=== PATIENT | female | born 1950 | race Caucasian/White ===

== ENCOUNTER → 2017-07-26 01:00 | Outpatient (REF) | payer MEDICARE, SELFPAY | LOC: OLS.ACH 01:00 | PROVIDERS: Family Provider Family Medicine; PCP Family Medicine; Visit Provider Family Medicine | DX: N39.0 Urinary tract infection, site not specified (principal) | CPT/HCPCS: 87077; 87086; 87088; 87186 ==

== ENCOUNTER → 2017-08-20 05:00 | Outpatient (REF) | payer MEDICARE, SELFPAY ==
[2017-08-20 08:30] LABS: Color, Urine Yellow (Yellow); Glucose, Dipstick Normal (Normal); Ketone-Dipstick 5 mg/dl (Negative); Leukocyte Esterase-Dipstick 25 /ul (Negative); Nitrite-Dipstick Negative (Negative); Occult Blood-Urine Negative /ul (Negative); Protein-Dipstick Negative (Negative); Urine Bilirubin Dipstick Negative (Negative); Urine Clarity Clear (Clear); Urine Urobilinogen Normal (Normal)
[2017-08-20 08:57] LABS: Creatinine, Serum 0.71 mg/dL (0.55-1.02); EST Glomerular Filtration Rate 88 mL/min (>60); Est Glom Filt Rate - Afr Amer 107 mL/min (>60)
== END ==
LOC: OLS.ACH 05:00
PROVIDERS: Visit Provider Family Medicine
DX: G20 Parkinson's disease (principal); N39.0 Urinary tract infection, site not specified
CPT/HCPCS: 36415; 81002; 82565

== ENCOUNTER → 2017-09-18 04:53 | Outpatient (REF) | payer MEDICARE, SELFPAY ==
[2017-09-18 08:41] LABS: Color, Urine Yellow (Yellow); Glucose, Dipstick Normal (Normal); Ketone-Dipstick Negative (Negative); Specific Gravity, Urine 1.025 (1.002-1.030); Urine Bilirubin Dipstick Negative (Negative); Urine Clarity Sl Cloudy (Clear)
[2017-09-18 08:42] LABS: Leukocyte Esterase-Dipstick Negative /ul (Negative); Nitrite-Dipstick Negative (Negative); Occult Blood-Urine Negative /ul (Negative); Protein-Dipstick Negative (Negative); Urine Urobilinogen Normal (Normal)
== END ==
LOC: OLS.ACH 04:53
PROVIDERS: Visit Provider Family Medicine
DX: N39.0 Urinary tract infection, site not specified (principal)
CPT/HCPCS: 81002

== ENCOUNTER → 2017-10-15 05:00 | Outpatient (REF) | payer MEDICARE, SELFPAY ==
[2017-10-15 08:40] LABS: Absolute Lymphocyte Count 1.63 X10^3/ul (0.83-4.51); Absolute Neutrophil Count 3.8 X10^3/uL (2.0-7.7); Basophil# 0.03 X10^3/uL; Basophil% 0.5 % (0-1); Eosinophil# 0.22 X10^3/uL; Eosinophils% 3.5 % (0-5); Hematocrit 42.1 % (37-47); Hemoglobin 13.3 g/dl (12.0-15.0); Lymphocyte # 1.63 X10^3/ul (4.0); Lymphocyte % 26.2 % (19-41); Mean Corp Hgb Conc 31.6 g/gl (32-36); Mean Corpuscular Hgb 29.4 pg (27.0-32.0); Mean Corpuscular Volume 92.9 fL (81-99); Mean Platelet Vol. 10.7 fl (6.2-12.0); Monocyte# 0.54 X10^3/uL; Monocyte% 8.7 % (0-10); Neutrophil % 60.9 % (47-70); Platelet Count 200 K/mm3 (150-450); RBC Distribution Width CV 15.2 % (11.6-14.6); RBC Distribution Width SD 51.6 fl (35.1-43.9); Red Blood Count 4.53 M/mm3 (4.2-5.4); White Blood Count 6.2 K/mm3 (4.4-11.0)
[2017-10-15 08:51] LABS: POSITIVE COUNT NO; POSITIVE DIFFERENTIAL NO; POSITIVE MORPHOLOGY NO
[2017-10-15 09:07] LABS: Anion Gap 9 (5-15); BUN 18 mg/dL (7-18); BUN/Creat Ratio 24.4 RATIO (10-20); Calcium,Total 8.8 mg/dL (8.5-10.1); Chloride 101 mmol/L (98-107); Creatinine, Serum 0.74 mg/dL (0.55-1.02); EST Glomerular Filtration Rate 84 mL/min (>60); Est Glom Filt Rate - Afr Amer 102 mL/min (>60); Glucose 92 mg/dL (70-110); Potassium 4.2 mmol/L (3.5-5.1); Sodium Level 137 mmol/L (136-145)
== END ==
LOC: OLS.ACH 05:00
PROVIDERS: Visit Provider Family Medicine
DX: E03.9 Hypothyroidism, unspecified (principal); I48.0 Paroxysmal atrial fibrillation; N20.0 Calculus of kidney
CPT/HCPCS: 36415; 80048; 84443; 85025

== ENCOUNTER → 2017-10-17 05:00 | Outpatient (REF) | payer MEDICARE, SELFPAY ==
[2017-10-17 07:27] LABS: Color, Urine Yellow (Yellow); Glucose, Dipstick Normal (Normal); Ketone-Dipstick Negative (Negative); Leukocyte Esterase-Dipstick 500 /ul (Negative); Nitrite-Dipstick Positive (Negative); Occult Blood-Urine 10 /ul (Negative); Protein-Dipstick Negative (Negative); Urine Bilirubin Dipstick Negative (Negative); Urine Clarity Sl. Cloudy (Clear); Urine Urobilinogen Normal (Normal)
== END ==
LOC: OLS.ACH 05:00
PROVIDERS: Visit Provider Family Medicine
DX: E03.9 Hypothyroidism, unspecified (principal); I48.0 Paroxysmal atrial fibrillation; N20.0 Calculus of kidney; N39.0 Urinary tract infection, site not specified
CPT/HCPCS: 81002; 87086; 87088; 87186

== ENCOUNTER → 2017-12-17 05:00 | Outpatient (REF) | payer MEDICARE, SELFPAY ==
[2017-12-17 08:04] LABS: Color, Urine Yellow (Yellow); Glucose, Dipstick Normal (Normal); Ketone-Dipstick Negative (Negative); Leukocyte Esterase-Dipstick Negative /ul (Negative); Nitrite-Dipstick Negative (Negative); Occult Blood-Urine Negative /ul (Negative); Protein-Dipstick Negative (Negative); Specific Gravity, Urine 1.015 (1.002-1.030); Urine Bilirubin Dipstick Negative (Negative); Urine Clarity Sl. Cloudy (Clear); Urine Urobilinogen Normal (Normal)
== END ==
LOC: OLS.ACH 05:00
PROVIDERS: Visit Provider Family Medicine
DX: N39.0 Urinary tract infection, site not specified (principal)
CPT/HCPCS: 81002

== ENCOUNTER → 2018-01-14 05:00 | Outpatient (REF) | payer MEDICARE, SELFPAY ==
[2018-01-14 08:16] LABS: Absolute Lymphocyte Count 1.72 X10^3/ul (0.83-4.51); Absolute Neutrophil Count 3.4 X10^3/uL (2.0-7.7); Basophil# 0.03 X10^3/uL; Basophil% 0.5 % (0-1); Eosinophil# 0.29 X10^3/uL; Eosinophils% 4.8 % (0-5); Hematocrit 40.4 % (37-47); Hemoglobin 13.1 g/dl (12.0-15.0); Lymphocyte # 1.72 X10^3/ul (4.0); Lymphocyte % 28.4 % (19-41); Mean Corp Hgb Conc 32.4 g/gl (32-36); Mean Corpuscular Hgb 30.3 pg (27.0-32.0); Mean Corpuscular Volume 93.5 fL (81-99); Mean Platelet Vol. 10.4 fl (6.2-12.0); Monocyte# 0.63 X10^3/uL; Monocyte% 10.4 % (0-10); Neutrophil # 3.36 X10^3/uL (2.7-7.7); Neutrophil % 55.6 % (47-70); Platelet Count 200 K/mm3 (150-450); RBC Distribution Width CV 13.9 % (11.6-14.6); RBC Distribution Width SD 45.9 fl (35.1-43.9); Red Blood Count 4.32 M/mm3 (4.2-5.4); White Blood Count 6.1 K/mm3 (4.4-11.0)
[2018-01-14 08:22] LABS: Color, Urine Yellow (Yellow); Glucose, Dipstick Normal (Normal); Ketone-Dipstick Negative (Negative); Leukocyte Esterase-Dipstick Negative /ul (Negative); Nitrite-Dipstick Negative (Negative); Occult Blood-Urine Negative /ul (Negative); Protein-Dipstick Negative (Negative); Specific Gravity, Urine 1.015 (1.002-1.030); Urine Bilirubin Dipstick Negative (Negative); Urine Clarity Sl. Cloudy (Clear); Urine Urobilinogen Normal (Normal)
[2018-01-14 08:24] LABS: POSITIVE COUNT NO; POSITIVE DIFFERENTIAL NO; POSITIVE MORPHOLOGY NO
[2018-01-14 08:54] LABS: Anion Gap 8 (5-15); BUN 18 mg/dL (7-18); BUN/Creat Ratio 27.6 RATIO (10-20); Calcium,Total 8.3 mg/dL (8.5-10.1); Chloride 107 mmol/L (98-107); Creatinine, Serum 0.65 mg/dL (0.55-1.02); EST Glomerular Filtration Rate 97 mL/min (>60); Est Glom Filt Rate - Afr Amer 117 mL/min (>60); Glucose 88 mg/dL (74-106); Potassium 4.3 mmol/L (3.5-5.1); Sodium Level 141 mmol/L (136-145); Thyroid Stim Hormone (TSH) 1.89 uIU/mL (0.358-3.74)
== END ==
LOC: OLS.ACH 05:00
PROVIDERS: Visit Provider Family Medicine
DX: E03.9 Hypothyroidism, unspecified (principal); I48.0 Paroxysmal atrial fibrillation; N20.0 Calculus of kidney; N39.0 Urinary tract infection, site not specified
CPT/HCPCS: 36415; 80048; 81002; 84443; 85025

== ENCOUNTER → 2018-03-18 07:00 | Outpatient (REF) | payer MEDICARE, SELFPAY ==
[2018-03-18 08:19] LABS: Color, Urine Yellow (Yellow); Glucose, Dipstick Normal (Normal); Ketone-Dipstick 5 mg/dl (Negative); Leukocyte Esterase-Dipstick 25 /ul (Negative); Nitrite-Dipstick Negative (Negative); Occult Blood-Urine Negative /ul (Negative); Protein-Dipstick 30 mg/dl (Negative); Specific Gravity, Urine 1.025 (1.002-1.030); Urine Bilirubin Dipstick Negative (Negative); Urine Clarity Sl. Cloudy (Clear); Urine Urobilinogen Normal (Normal)
== END ==
LOC: OLS.ACH 07:00
PROVIDERS: Visit Provider Family Medicine
DX: N39.0 Urinary tract infection, site not specified (principal)
CPT/HCPCS: 81002

== ENCOUNTER → 2018-04-15 05:00 | Outpatient (REF) | payer MEDICARE, SELFPAY ==
[2018-04-15 09:05] LABS: Absolute Lymphocyte Count 1.28 X10^3/ul (0.83-4.51); Absolute Neutrophil Count 2.9 X10^3/uL (2.0-7.7); Basophil# 0.03 X10^3/uL; Basophil% 0.6 % (0-1); Eosinophil# 0.26 X10^3/uL; Eosinophils% 5.3 % (0-5); Hematocrit 42.3 % (37-47); Hemoglobin 13.6 g/dl (12.0-15.0); Lymphocyte # 1.28 X10^3/ul (4.0); Lymphocyte % 26.1 % (19-41); Mean Corp Hgb Conc 32.2 g/gl (32-36); Mean Corpuscular Hgb 30.2 pg (27.0-32.0); Mean Corpuscular Volume 93.8 fL (81-99); Mean Platelet Vol. 10.6 fl (6.2-12.0); Monocyte# 0.44 X10^3/uL; Neutrophil # 2.89 X10^3/uL (2.7-7.7); Platelet Count 188 K/mm3 (150-450); RBC Distribution Width CV 14.2 % (11.6-14.6); RBC Distribution Width SD 48.5 fl (35.1-43.9); Red Blood Count 4.51 M/mm3 (4.2-5.4); White Blood Count 4.9 K/mm3 (4.4-11.0)
[2018-04-15 09:06] LABS: Color, Urine Yellow (Yellow); Glucose, Dipstick Normal (Normal); Ketone-Dipstick 15 mg/dl (Negative); Leukocyte Esterase-Dipstick 25 /ul (Negative); Nitrite-Dipstick Negative (Negative); Occult Blood-Urine 10 /ul (Negative); Protein-Dipstick 100 mg/dl (Negative); Urine Bilirubin Dipstick Negative (Negative); Urine Clarity Cloudy (Clear); Urine Urobilinogen 1 mg/dl (Normal)
[2018-04-15 09:12] LABS: POSITIVE COUNT NO; POSITIVE DIFFERENTIAL NO; POSITIVE MORPHOLOGY NO
[2018-04-15 09:55] LABS: Anion Gap 10 (5-15); BUN 19 mg/dL (7-18); BUN/Creat Ratio 25.1 RATIO (10-20); Calcium,Total 8.4 mg/dL (8.5-10.1); Chloride 107 mmol/L (98-107); Creatinine, Serum 0.76 mg/dL (0.55-1.02); EST Glomerular Filtration Rate 81 mL/min (>60); Est Glom Filt Rate - Afr Amer 99 mL/min (>60); Glucose 77 mg/dL (74-106); Potassium 4.3 mmol/L (3.5-5.1); Sodium Level 143 mmol/L (136-145); Thyroid Stim Hormone (TSH) 1.69 uIU/mL (0.358-3.74)
== END ==
LOC: OLS.ACH 05:00
PROVIDERS: Visit Provider Family Medicine
DX: I48.0 Paroxysmal atrial fibrillation (principal); E03.9 Hypothyroidism, unspecified; N20.0 Calculus of kidney; N39.0 Urinary tract infection, site not specified
CPT/HCPCS: 36415; 80048; 81002; 84443; 85025

== ENCOUNTER → 2018-05-20 01:00 | Outpatient (REF) | payer MEDICARE, SELFPAY ==
[2018-05-20 09:50] LABS: Color, Urine Yellow (Yellow); Glucose, Dipstick Normal (Normal); Ketone-Dipstick Negative (Negative); Leukocyte Esterase-Dipstick 25 /ul (Negative); Nitrite-Dipstick Negative (Negative); Occult Blood-Urine Negative /ul (Negative); Protein-Dipstick Negative (Negative); Urine Bilirubin Dipstick Negative (Negative); Urine Clarity Cloudy (Clear); Urine Urobilinogen Normal (Normal)
== END ==
LOC: OLS.ACH 01:00
PROVIDERS: Visit Provider Family Medicine
DX: N39.0 Urinary tract infection, site not specified (principal)
CPT/HCPCS: 81002

== ENCOUNTER → 2018-06-17 22:50 | Outpatient (REF) | payer MEDICARE, SELFPAY ==
[2018-06-18 09:21] LABS: Color, Urine Yellow (Yellow); Glucose, Dipstick Normal (Normal); Ketone-Dipstick 5 mg/dl (Negative); Leukocyte Esterase-Dipstick 100 /ul (Negative); Nitrite-Dipstick Negative (Negative); Occult Blood-Urine Negative /ul (Negative); Protein-Dipstick 15 mg/dl (Negative); Specific Gravity, Urine 1.025 (1.002-1.030); Urine Bilirubin Dipstick Negative (Negative); Urine Clarity Sl. Cloudy (Clear); Urine Urobilinogen Normal (Normal)
== END ==
LOC: OLS.ACH 22:50
PROVIDERS: Visit Provider Family Medicine
DX: N39.0 Urinary tract infection, site not specified (principal)
CPT/HCPCS: 81002

== ENCOUNTER → 2018-07-15 04:00 | Outpatient (REF) | payer MEDICARE, SELFPAY ==
[2018-07-15 08:01] LABS: Absolute Lymphocyte Count 1.53 X10^3/ul (0.83-4.51); Basophil# 0.03 X10^3/uL; Basophil% 0.5 % (0-1); Eosinophil# 0.38 X10^3/uL; Hematocrit 43.1 % (37-47); Hemoglobin 14.6 g/dl (12.0-15.0); Lymphocyte # 1.53 X10^3/ul (4.0); Mean Corp Hgb Conc 33.9 g/gl (32-36); Mean Corpuscular Hgb 32.4 pg (27.0-32.0); Mean Corpuscular Volume 95.6 fL (81-99); Mean Platelet Vol. 10.8 fl (6.2-12.0); Monocyte# 0.53 X10^3/uL; Monocyte% 9.7 % (0-10); Neutrophil # 2.98 X10^3/uL (2.7-7.7); Neutrophil % 54.6 % (47-70); Platelet Count 203 K/mm3 (150-450); RBC Distribution Width CV 13.5 % (11.6-14.6); RBC Distribution Width SD 46.2 fl (35.1-43.9); Red Blood Count 4.51 M/mm3 (4.2-5.4); White Blood Count 5.5 K/mm3 (4.4-11.0)
[2018-07-15 08:09] LABS: POSITIVE COUNT NO; POSITIVE DIFFERENTIAL NO; POSITIVE MORPHOLOGY NO
[2018-07-15 08:27] LABS: Anion Gap 10 (5-15); BUN 19 mg/dL (7-18); BUN/Creat Ratio 26.9 RATIO (10-20); Calcium,Total 8.8 mg/dL (8.5-10.1); Chloride 103 mmol/L (98-107); Creatinine, Serum 0.71 mg/dL (0.55-1.02); EST Glomerular Filtration Rate 88 mL/min (>60); Est Glom Filt Rate - Afr Amer 107 mL/min (>60); Glucose 91 mg/dL (74-106); Potassium 4.2 mmol/L (3.5-5.1); Sodium Level 139 mmol/L (136-145); Thyroid Stim Hormone (TSH) 5.35 uIU/mL (0.358-3.74)
[2018-07-15 10:56] LABS: Color, Urine Yellow (Yellow); Glucose, Dipstick Normal (Normal); Ketone-Dipstick Negative (Negative); Leukocyte Esterase-Dipstick 25 /ul (Negative); Nitrite-Dipstick Positive (Negative); Occult Blood-Urine 25 /ul (Negative); Protein-Dipstick Negative (Negative); Specific Gravity, Urine 1.015 (1.002-1.030); Urine Bilirubin Dipstick Negative (Negative); Urine Clarity Sl. Cloudy (Clear); Urine Urobilinogen Normal (Normal)
== END ==
LOC: OLS.ACH 04:00
PROVIDERS: Visit Provider Family Medicine
DX: E03.9 Hypothyroidism, unspecified (principal); I48.0 Paroxysmal atrial fibrillation; N20.0 Calculus of kidney; N13.6 Pyonephrosis
CPT/HCPCS: 36415; 80048; 81002; 84443; 85025; 87086; 87088; 87186

== ENCOUNTER → 2018-08-19 05:00 | Outpatient (REF) | payer MEDICARE, SELFPAY ==
[2018-08-19 07:55] LABS: Creatinine, Serum 0.92 mg/dL (0.55-1.02); EST Glomerular Filtration Rate 65 mL/min (>60); Est Glom Filt Rate - Afr Amer 79 mL/min (>60)
[2018-08-19 08:19] LABS: Color, Urine Yellow (Yellow); Glucose, Dipstick Normal (Normal); Ketone-Dipstick 5 mg/dl (Negative); Leukocyte Esterase-Dipstick 500 /ul (Negative); Nitrite-Dipstick Positive (Negative); Occult Blood-Urine 10 /ul (Negative); Protein-Dipstick 15 mg/dl (Negative); Specific Gravity, Urine 1.015 (1.002-1.030); Urine Bilirubin Dipstick Negative (Negative); Urine Clarity Cloudy (Clear); Urine Urobilinogen Normal (Normal)
== END ==
LOC: OLS.ACH 05:00
PROVIDERS: Visit Provider Family Medicine
DX: G20 Parkinson's disease (principal); N39.490 Overflow incontinence
CPT/HCPCS: 36415; 81002; 82565

== ENCOUNTER → 2018-08-26 05:00 | Outpatient (REF) | payer MEDICARE, SELFPAY ==
[2018-08-26 08:46] LABS: Thyroid Stim Hormone (TSH) 0.97 uIU/mL (0.358-3.74)
--- OUTSIDE RECORDS SUMMARY | 2018-10-19 03:34 | XMS RPT_ITS ---
:1950 Author Organization [employer] Name Relationship Address Phone Tonio Rios Unavailable [address] + [place] [address] D Unavailable Unavailable Unavailable Harry, Keesha Unavailable . + ., . . Blanca Tonio Unavailable [address] + [place] [address] D Unavailable Unavailable Unavailable Harry, Keesha Unavailable . + ., . . Blanca Tonio Unavailable [address] + [place] [address] D Unavailable Unavailable Unavailable Harry, Keesha Unavailable . + ., . . Blanca Tonio Unavailable [address] + [place] [address] D Unavailable Unavailable Unavailable Harry, Keesha Unavailable . + ., . . Blanca Tonio Unavailable [address] + [place] [address] D Unavailable Unavailable Unavailable Harry, Keesha Unavailable . + ., . . Blanca Tonio Unavailable [address] + [place] [address] D Unavailable Unavailable Unavailable Harry, Keesha Unavailable . + ., . . Blanca Tonio Unavailable [address] + [place] [address] D Unavailable Unavailable Unavailable Harry, Keesha Unavailable . + ., . . Blanca Tonio Unavailable [address] [phone] [place] [address] D Unavailable Unavailable Unavailable Harry, Keesha Unavailable . + ., . . Bilek, Tonio Unavailable [address] [phone] [place] [address] D Unavailable Unavailable Unavailable Harry, Keesha Unavailable . + ., . . Bilek, Tonio Unavailable [address] [phone] [place] [address] D Unavailable Unavailable Unavailable Harry, Keesha Unavailable . + ., . . Bilek, Tonio Unavailable [address] [phone] [place] [address] D Unavailable Unavailable Unavailable Harry, Keesha Unavailable . + ., . . Bilek, Tonio Unavailable [address] [phone] [place] [address] D Unavailable Unavailable Unavailable Harry, Keesha Unavailable . + ., . . Bilek, Tonio Unavailable [address] [phone] [place] [address] D Unavailable Unavailable Unavailable Harry, Keesha Unavailable . + ., . . Bilek, Tonio Unavailable [address] [phone] [place] [address] D Unavailable Unavailable Unavailable Harry, Keesha Unavailable . + ., . . Bilek, Tonio Unavailable [address] [phone] [place] [address] D Unavailable Unavailable Unavailable Harry, Keesha Unavailable . + ., . . Care Team Providers Name Role Phone Dax Hansen Attending Unavailable Tyrone, Dax Attending Unavailable Tyrone, Dax Attending Unavailable Tyrone, Dax Attending Unavailable Tyrone, Dax Attending Unavailable Tyrone, Dax Attending Unavailable Tyrone, Dax Attending Unavailable Tyrone, Dax Attending Unavailable Tyrone, Dax Attending Unavailable Petrilla, Dax Attending Unavailable Petrilla, Dax Attending Unavailable Petrilla, Dax Attending Unavailable Petrilla, Dax Attending Unavailable Petrilla, Dax Attending Unavailable Petrilla, Dax Attending Unavailable PROBLEMS PROBLEMS DATE TYPE CONDITION / CODE ATTENDING STATUS SOURCE 09/05/2018 Unknown E03.9 - Petrilla, Active [place] Hypothyroidism, [facility] unspecified / Hospital E03.9(ICD-10) Repository 08/06/2018 Unknown I48.0 - Paroxysmal Petrilla, Active [place] atrial [facility] fibrillation / Hospital I48.0(ICD-10) Repository 08/06/2018 Unknown 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, Active Lucho of kidney / [facility] N20.0(ICD-10) Hospital Repository 07/24/2018 Unknown N39.0 - Urinary Petrilla, Active [place] tract infection, [facility] site not specified Hospital / N39.0(ICD-10) Repository PROCEDURES PROCEDURES No Procedure Records FoundRESULTS RESULTS THYROID STIM HORMONE Collected: 08/26/2018 Status: F Source: LUCHO (TSH) 6:00 AM [facility] REPOSITORY Order Comment: 309 TYPE CODE TESTS RESULT OUT OF RANGE REFERENCE UNITS LAB L501.9520 0.358-3.74 uIU/mL Normal TSH 0.97 Performed By: #### L501.9520 #### [facility] [address] [place], [place], [address] SERUM CREATININE AND Collected: 08/19/2018 Status: F Source: LUCHO GFR 5:55 AM [facility] REPOSITORY Order Comment: RM 309 TYPE CODE TESTS RESULT OUT OF RANGE REFERENCE UNITS LAB L501.1100 0.55-1.02 mg/dL Normal 0.92 CREAT,SERUM Result Comment: The validity of the calculated GFR AND GFRAA in patients over 70 years has not been determined. Clinical correlation is essential. LAB L501.1110 >60 mL/min Normal EST GFR 65 Result Comment: Non- GFR Calc LAB L501.1115 >60 mL/min Normal EST GFR - AA 79 Result Comment: GFR Calc Performed By: #### L501.1105 #### [facility] [address] [place], [place], [address] URINALYSIS, ROUTINE Collected: 08/19/2018 Status: F Source: LUCHO (DIPSTICK) 3:00 AM [facility] REPOSITORY Order Comment: How was Urine Obtained? CLEAN CATCH TYPE CODE TESTS RESULT OUT OF RANGE REFERENCE UNITS LAB L400.3000 Yellow COLOR Normal Yellow LAB L400.3050 Clear Normal CLARITY Cloudy LAB L400.3200 Normal mg/dl Normal GLUCOSE, UR Normal LAB L400.3300 Negative mg/dL Normal BILIRUBIN URINE Negative LAB L400.3400 Negative mg/dl High 5 KETONE UR LAB L400.3465 1.002-1.030 Normal SP.GR. DIPSTX 1.015 LAB L400.3550 5.0 - 8.0 pH UR Normal 6.0 LAB L400.3600 Negative mg/dl High PROT 15 DIPSTX LAB L400.3700 Normal mg/dl Normal UROBILI Normal LAB L400.3750 Negative High NITRITE UR Positive LAB L400.3780 Negative /ul High 10 OCCULT BLOOD-UR LAB L400.3800 Negative /ul High LEUK ESTERASE 500 Performed By: #### L400.2010 #### [facility] [address] [place], [address] CBC W/DIFF, AUTOMATED Collected: 07/15/2018 Status: F Source: LUCHO 5:45 AM [facility] REPOSITORY Order Comment: ROOM 309 TYPE CODE TESTS RESULT OUT OF RANGE REFERENCE UNITS LAB L100.1000 4.4-11.0 K/mm3 Normal WBC 5.5 LAB L100.1200 4.2-5.4 M/mm3 Normal RBC 4.51 LAB L100.1300 12.0-15.0 g/dl Normal HGB 14.6 LAB L100.1400 37-47 % Normal HCT 43.1 LAB L100.1500 81-99 fL Normal MCV 95.6 LAB L100.1600 27.0-32.0 pg High MCH 32.4 LAB L100.1700 32-36 g/gl Normal MCHC 33.9 LAB L100.1810 11.6-14.6 % Normal RDW CV 13.5 LAB L100.1820 35.1-43.9 fl High RDW SD 46.2 LAB L100.1900 150-450 K/mm3 Normal PLT 203 LAB L100.2000 6.2-12.0 fl Normal MPV 10.8 LAB L100.2100 47-70 % Normal NEUT% 54.6 LAB L100.2200 19-41 % Normal LY% 28.0 LAB L100.2300 0-10 % Normal MONO% 9.7 LAB L100.2400 0-5 % High EO% 7.0 LAB L100.2500 0-1 % Normal BASO% 0.5 LAB L100.2550 0.0-0.9 % Normal IM GRAN % 0.200 Result Comment: IG% - Immature Granulocytes (promyelocytes, myelocytes and metamyelocytes) > 1% indicates that a LEFT SHIFT is Present. LAB L100.2620 2.0-7.7 X10 3/uL Normal Absolute Neut 3.0 LAB L100.2720 0.83-4.51 X10 3/ul Normal Absolute Lymph 1.53 Performed By: #### L100.0100 #### [facility] [address] [place], [place], [address] BASIC METABOLIC Collected: 07/15/2018 Status: F Source: BAXTER PROFILE (BMP) 5:45 AM [facility] REPOSITORY Order Comment: ROOM 309 TYPE CODE TESTS RESULT OUT OF RANGE REFERENCE UNITS LAB L501.0100 74-106 mg/dL Normal GLU 91 Result Comment: Please note revised GLUCOSE reference range effective 2017. LAB L501.1000 7-18 mg/dL High BUN 19 LAB L501.1100 0.55-1.02 mg/dL Normal CREAT,SERUM 0.71 Result Comment: The validity of the calculated GFR AND GFRAA in patients over 70 years has not been determined. Clinical correlation is essential. LAB L501.1110 >60 mL/min Normal EST GFR 88 Result Comment: Non- GFR Calc LAB L501.1115 >60 mL/min Normal EST GFR - AA 107 Result Comment: GFR Calc LAB L501.1300 10-20 RATIO High BUN/CRE 26.9 LAB L501.2200 8.5-10.1 mg/dL CA Normal 8.8 LAB L501.5300 136-145 mmol/L NA Normal 139 LAB L501.5600 3.5-5.1 mmol/L K Normal 4.2 LAB L501.5900 98-107 mmol/L CL Normal 103 LAB L501.6100 21.0-32.0 mmol/L Normal CO2 26.0 LAB L501.6200 5-15 Normal GAP 10 Performed By: #### L500.2500, L501.9520 #### [facility] [address] [place], [address] THYROID STIM HORMONE Collected: 07/15/2018 Status: F Source: LUCHO (TSH) 5:45 AM [facility] REPOSITORY Order Comment: ROOM 309 TYPE CODE TESTS RESULT OUT OF RANGE REFERENCE UNITS LAB L501.9520 0.358-3.74 uIU/mL High TSH 5.35 Performed By: #### L500.2499, L501.9520 #### [facility] [address] [place], [place], [address] URINALYSIS, ROUTINE Collected: 07/15/2018 Status: F Source: LUCHO (DIPSTICK) 2:20 AM [facility] REPOSITORY Order Comment: How was Urine Obtained? CATHETER SPECIMEN TYPE CODE TESTS RESULT OUT OF RANGE REFERENCE UNITS LAB L400.3000 Yellow COLOR Normal Yellow LAB L400.3050 Clear Normal CLARITY Sl. Cloudy LAB L400.3200 Normal mg/dl Normal GLUCOSE, UR Normal LAB L400.3300 Negative mg/dL Normal BILIRUBIN URINE Negative LAB L400.3400 Negative mg/dl Normal KETONE UR Negative LAB L400.3465 1.002-1.030 Normal SP.GR. DIPSTX 1.015 LAB L400.3550 5.0 - 8.0 pH UR Normal 7.0 LAB L400.3600 Negative mg/dl PROT Normal DIPSTX Negative LAB L400.3700 Normal mg/dl Normal UROBILI Normal LAB L400.3750 Negative High NITRITE UR Positive LAB L400.3780 Negative /ul High 25 OCCULT BLOOD-UR LAB L400.3800 Negative /ul High LEUK 25 ESTERASE Performed By: #### L400.2010 #### [facility] [address] [place], [place], [address] Observed: 07/15/2018 Status: F Source: LUCHO CULTURE, URINE 2:20 AM [facility] REPOSITORY Urine Culture ORGANISM 1: Presumptive E. coli [place] Count >100,000 Presumptive E. coli: REACTION Amoxacillin/Clavulanic Acid $ <=2 S Ampicillin $ <=2 S Ampicillin/Sulbactam $ <=2 S Cefazolin $ <=4 S Cefepime $ <=1 S Ceftriaxone $ <=1 S Ciprofloxacin $ <=0.25 S ESBL - Ertapenim $$$ <=0.5 S Gentamicin $ <=1 S Imipenem *NF <=0.25 S Levofloxacin $ <=0.12 S Nitrofurantoin $ >=512 R Piperacillin/Tazobactam $$ <=4 S Tobramycin $ <=1 S Trimethoprim/Sulfametho $ <=20 S (NF) indicates non-formulary drug at [facility]. Approval by Infectious Disease Specialist required before non-formulary drugs may be ordered and/or dispensed. Performed By: #### M100.0650 #### [facility] [address] [place], [place], [address] URINALYSIS, ROUTINE Collected: 06/17/2018 Status: F Source: BAXTER (DIPSTICK) 10:50 PM [facility] REPOSITORY Order Comment: How was Urine Obtained? CATHETER SPECIMEN TYPE CODE TESTS RESULT OUT OF RANGE REFERENCE UNITS LAB L400.3000 Yellow COLOR Normal Yellow LAB L400.3050 Clear Normal CLARITY Sl. Cloudy LAB L400.3200 Normal mg/dl Normal GLUCOSE, UR Normal LAB L400.3300 Negative mg/dL Normal BILIRUBIN URINE Negative LAB L400.3400 Negative mg/dl High 5 KETONE UR LAB L400.3465 1.002-1.030 Normal SP.GR. DIPSTX 1.025 LAB L400.3550 5.0 - 8.0 pH UR Normal 6.0 LAB L400.3600 Negative mg/dl High PROT 15 DIPSTX LAB L400.3700 Normal mg/dl Normal UROBILI Normal LAB L400.3750 Negative Normal NITRITE UR Negative LAB L400.3780 Negative /ul Normal OCCULT BLOOD-UR Negative LAB L400.3800 Negative /ul High LEUK ESTERASE 100 Performed By: #### L400.2010 #### [facility] [address] [place], [place], [id number] URINALYSIS, ROUTINE Collected: 05/20/2018 Status: F Source: LUCHO (DIPSTICK) 1:00 AM [facility] REPOSITORY Order Comment: How was Urine Obtained? CATHETER SPECIMEN TYPE CODE TESTS RESULT OUT OF RANGE REFERENCE UNITS LAB L400.3000 Yellow COLOR Normal Yellow LAB L400.3050 Clear Normal CLARITY Cloudy LAB L400.3200 Normal mg/dl Normal GLUCOSE, UR Normal LAB L400.3300 Negative mg/dL Normal BILIRUBIN URINE Negative LAB L400.3400 Negative mg/dl Normal KETONE UR Negative LAB L400.3465 1.002-1.030 Normal SP.GR. DIPSTX 1.010 LAB L400.3550 5.0 - 8.0 pH UR Normal 7.0 LAB L400.3600 Negative mg/dl PROT Normal DIPSTX Negative LAB L400.3700 Normal mg/dl Normal UROBILI Normal LAB L400.3750 Negative Normal NITRITE UR Negative LAB L400.3780 Negative /ul Normal OCCULT BLOOD-UR Negative LAB L400.3800 Negative /ul High LEUK 25 ESTERASE Performed By: #### L400.2010 #### [facility] [address] [place], [address] CBC W/DIFF, AUTOMATED Collected: 04/15/2018 Status: F Source: LUCHO 7:00 AM [facility] REPOSITORY Order Comment: ROOM 309 TYPE CODE TESTS RESULT OUT OF RANGE REFERENCE UNITS LAB L100.1000 4.4-11.0 K/mm3 Normal WBC 4.9 LAB L100.1200 4.2-5.4 M/mm3 Normal RBC 4.51 LAB L100.1300 12.0-15.0 g/dl Normal HGB 13.6 LAB L100.1400 37-47 % Normal HCT 42.3 LAB L100.1500 81-99 fL Normal MCV 93.8 LAB L100.1600 27.0-32.0 pg Normal MCH 30.2 LAB L100.1700 32-36 g/gl Normal MCHC 32.2 LAB L100.1810 11.6-14.6 % Normal RDW CV 14.2 LAB L100.1820 35.1-43.9 fl High RDW SD 48.5 LAB L100.1900 150-450 K/mm3 Normal PLT 188 LAB L100.2000 6.2-12.0 fl Normal MPV 10.6 LAB L100.2100 47-70 % Normal NEUT% 59.0 LAB L100.2200 19-41 % Normal LY% 26.1 LAB L100.2300 0-10 % Normal MONO% 9.0 LAB L100.2400 0-5 % High EO% 5.3 LAB L100.2500 0-1 % Normal BASO% 0.6 LAB L100.2550 0.0-0.9 % Normal IM GRAN % 0.000 Result Comment: IG% - Immature Granulocytes (promyelocytes, myelocytes and metamyelocytes) > 1% indicates that a LEFT SHIFT is Present. LAB L100.2620 2.0-7.7 X10 3/uL Normal Absolute Neut 2.9 LAB L100.2720 0.83-4.51 X10 3/ul Normal Absolute Lymph 1.28 Performed By: #### L100.0100 #### [facility] [address] [place], [address] BASIC METABOLIC Collected: 04/15/2018 Status: F Source: BAXTER PROFILE (BMP) 7:00 AM [facility] REPOSITORY Order Comment: ROOM 309 TYPE CODE TESTS RESULT OUT OF RANGE REFERENCE UNITS LAB L501.0100 74-106 mg/dL Normal GLU 77 Result Comment: Please note revised GLUCOSE reference range effective 2017. LAB L501.1000 7-18 mg/dL High BUN 19 LAB L501.1100 0.55-1.02 mg/dL Normal CREAT,SERUM 0.76 Result Comment: The validity of the calculated GFR AND GFRAA in patients over 70 years has not been determined. Clinical correlation is essential. LAB L501.1110 >60 mL/min Normal EST GFR 81 Result Comment: Non- GFR Calc LAB L501.1115 >60 mL/min Normal EST GFR - AA 99 Result Comment: GFR Calc LAB L501.1300 10-20 RATIO High BUN/CRE 25.1 LAB L501.2200 8.5-10.1 mg/dL Low CA 8.4 LAB L501.5300 136-145 mmol/L NA Normal 143 LAB L501.5600 3.5-5.1 mmol/L K Normal 4.3 LAB L501.5900 98-107 mmol/L CL Normal 107 LAB L501.6100 21.0-32.0 mmol/L Normal CO2 26.0 LAB L501.6200 5-15 Normal GAP 10 Performed By: #### L500.2500, L501.9520 #### [facility] [address] [place], [address] THYROID STIM HORMONE Collected: 04/15/2018 Status: F Source: LUCHO (TSH) 7:00 AM [facility] REPOSITORY Order Comment: ROOM 309 TYPE CODE TESTS RESULT OUT OF RANGE REFERENCE UNITS LAB L501.9520 0.358-3.74 uIU/mL Normal TSH 1.69 Performed By: #### L500.2499, L501.9520 #### [facility] [address] [place], [address] URINALYSIS, ROUTINE Collected: 04/15/2018 Status: F Source: LUCHO (DIPSTICK) 5:00 AM [facility] REPOSITORY Order Comment: ROOM 309 How was Urine Obtained? CATHETER SPECIMEN TYPE CODE TESTS RESULT OUT OF RANGE REFERENCE UNITS LAB L400.3000 Yellow COLOR Normal Yellow LAB L400.3050 Clear Normal CLARITY Cloudy LAB L400.3200 Normal mg/dl Normal GLUCOSE, UR Normal LAB L400.3300 Negative mg/dL Normal BILIRUBIN URINE Negative LAB L400.3400 Negative mg/dl High 15 KETONE UR LAB L400.3465 1.002-1.030 Normal SP.GR. DIPSTX 1.020 LAB L400.3550 5.0 - 8.0 pH UR Normal 6.0 LAB L400.3600 Negative mg/dl High PROT DIPSTX 100 LAB L400.3700 Normal mg/dl High 1 UROBILI LAB L400.3750 Negative Normal NITRITE UR Negative LAB L400.3780 Negative /ul High 10 OCCULT BLOOD-UR LAB L400.3800 Negative /ul High LEUK 25 ESTERASE Performed By: #### L400.2010 #### [facility] [address] [facility] [place], [address] URINALYSIS, ROUTINE Collected: 03/18/2018 Status: F Source: LUCHO (DIPSTICK) 7:00 AM [facility] REPOSITORY Order Comment: How was Urine Obtained? CATHETER SPECIMEN TYPE CODE TESTS RESULT OUT OF RANGE REFERENCE UNITS LAB L400.3000 Yellow COLOR Normal Yellow LAB L400.3050 Clear Normal CLARITY Sl. Cloudy LAB L400.3200 Normal mg/dl Normal GLUCOSE, UR Normal LAB L400.3300 Negative mg/dL Normal BILIRUBIN URINE Negative LAB L400.3400 Negative mg/dl High 5 KETONE UR LAB L400.3465 1.002-1.030 Normal SP.GR. DIPSTX 1.025 LAB L400.3550 5.0 - 8.0 pH UR Normal 6.0 LAB L400.3600 Negative mg/dl High PROT 30 DIPSTX LAB L400.3700 Normal mg/dl Normal UROBILI Normal LAB L400.3750 Negative Normal NITRITE UR Negative LAB L400.3780 Negative /ul Normal OCCULT BLOOD-UR Negative LAB L400.3800 Negative /ul High LEUK 25 ESTERASE Performed By: #### L400.2010 #### [facility] [address] [place], [place], [address] SERUM CREATININE AND Collected: 02/19/2018 Status: F Source: LUCHO GFR 5:40 AM [facility] REPOSITORY Order Comment: ROOM 309 TYPE CODE TESTS RESULT OUT OF RANGE REFERENCE UNITS LAB L501.1100 0.55-1.02 mg/dL Normal 0.76 CREAT,SERUM Result Comment: The validity of the calculated GFR AND GFRAA in patients over 70 years has not been determined. Clinical correlation is essential. LAB L501.1110 >60 mL/min Normal EST GFR 81 Result Comment: Non- GFR Calc LAB L501.1115 >60 mL/min Normal EST GFR - AA 98 Result Comment: GFR Calc Performed By: #### L501.1105 #### [facility] [address] [place], [place], [address] URINALYSIS, ROUTINE Collected: 02/19/2018 Status: F Source: LUCHO (DIPSTICK) 3:00 AM [facility] REPOS[facility] Order Comment: How was Urine Obtained? CATHETER SPECIMEN TYPE CODE TESTS RESULT OUT OF RANGE REFERENCE UNITS LAB L400.3000 Yellow COLOR Normal Yellow LAB L400.3050 Clear Normal CLARITY Cloudy LAB L400.3200 Normal mg/dl Normal GLUCOSE, UR Normal LAB L400.3300 Negative mg/dL Normal BILIRUBIN URINE Negative LAB L400.3400 Negative mg/dl High 5 KETONE UR LAB L400.3465 1.002-1.030 Normal SP.GR. DIPSTX 1.025 LAB L400.3550 5.0 - 8.0 pH UR Normal 6.0 LAB L400.3600 Negative mg/dl PROT Normal DIPSTX Negative LAB L400.3700 Normal mg/dl Normal UROBILI Normal LAB L400.3750 Negative Normal NITRITE UR Negative LAB L400.3780 Negative /ul Normal OCCULT BLOOD-UR Negative LAB L400.3800 Negative /ul High LEUK 25 ESTERASE Performed By: #### L400.2010 #### [facility] [address] [place], [place], [address] CBC W/DIFF, AUTOMATED Collected: 01/14/2018 Status: F Source: BAXTER 5:43 AM [facility] REPOSITORY TYPE CODE TESTS RESULT OUT OF RANGE REFERENCE UNITS LAB L100.1000 4.4-11.0 K/mm3 Normal WBC 6.1 LAB L100.1200 4.2-5.4 M/mm3 Normal RBC 4.32 LAB L100.1300 12.0-15.0 g/dl Normal HGB 13.1 LAB L100.1400 37-47 % Normal HCT 40.4 LAB L100.1500 81-99 fL Normal MCV 93.5 LAB L100.1600 27.0-32.0 pg Normal MCH 30.3 LAB L100.1700 32-36 g/gl Normal MCHC 32.4 LAB L100.1810 11.6-14.6 % Normal RDW CV 13.9 LAB L100.1820 35.1-43.9 fl High RDW SD 45.9 LAB L100.1900 150-450 K/mm3 Normal PLT 200 LAB L100.2000 6.2-12.0 fl Normal MPV 10.4 LAB L100.2100 47-70 % Normal NEUT% 55.6 LAB L100.2200 19-41 % Normal LY% 28.4 LAB L100.2300 0-10 % High MONO% 10.4 LAB L100.2400 0-5 % Normal EO% 4.8 LAB L100.2500 0-1 % Normal BASO% 0.5 LAB L100.2550 0.0-0.9 % Normal IM GRAN % 0.300 Result Comment: IG% - Immature Granulocytes (promyelocytes, myelocytes and metamyelocytes) > 1% indicates that a LEFT SHIFT is Present. LAB L100.2620 2.0-7.7 X10 3/uL Normal Absolute Neut 3.4 LAB L100.2720 0.83-4.51 X10 3/ul Normal Absolute Lymph 1.72 Performed By: #### L100.0100 #### [facility] [address] [facility] [place], [place], [address] BASIC METABOLIC Collected: 01/14/2018 Status: F Source: LUCHO PROFILE (BMP) 5:43 AM [facility] REPOSITORY TYPE CODE TESTS RESULT OUT OF RANGE REFERENCE UNITS LAB L501.0100 74-106 mg/dL Normal GLU 88 Result Comment: Please note revised GLUCOSE reference range effective 2017. LAB L501.1000 7-18 mg/dL Normal BUN 18 LAB L501.1100 0.55-1.02 mg/dL Normal CREAT,SERUM 0.65 Result Comment: The validity of the calculated GFR AND GFRAA in patients over 70 years has not been determined. Clinical correlation is essential. LAB L501.1110 >60 mL/min Normal EST GFR 97 Result Comment: Non- GFR Calc LAB L501.1115 >60 mL/min Normal EST GFR - AA 117 Result Comment: GFR Calc LAB L501.1300 10-20 RATIO High BUN/CRE 27.6 LAB L501.2200 8.5-10.1 mg/dL Low CA 8.3 LAB L501.5300 136-145 mmol/L NA Normal 141 LAB L501.5600 3.5-5.1 mmol/L K Normal 4.3 LAB L501.5900 98-107 mmol/L CL Normal 107 LAB L501.6100 21.0-32.0 mmol/L Normal CO2 26.0 LAB L501.6200 5-15 Normal GAP 8 Performed By: #### L500.2500, L501.9520 #### [facility] [address] [place], [place], [address] THYROID STIM HORMONE Collected: 01/14/2018 Status: F Source: LUCHO (TSH) 5:43 AM [facility] REPOSITORY TYPE CODE TESTS RESULT OUT OF RANGE REFERENCE UNITS LAB L501.9520 0.358-3.74 uIU/mL Normal TSH 1.89 Performed By: #### L500.2500, L501.9520 #### [facility] [address] [facility] [place], [address] URINALYSIS, ROUTINE Collected: 01/14/2018 Status: F Source: LUCHO (DIPSTICK) 2:12 AM [facility] REPOS[facility]ORY Order Comment: EXTRA CUUR TUBE How was Urine Obtained? CATHETER SPECIMEN TYPE CODE TESTS RESULT OUT OF RANGE REFERENCE UNITS LAB L400.3000 Yellow COLOR Normal Yellow LAB L400.3050 Clear Normal CLARITY Sl. Cloudy LAB L400.3200 Normal mg/dl Normal GLUCOSE, UR Normal LAB L400.3300 Negative mg/dL Normal BILIRUBIN URINE Negative LAB L400.3400 Negative mg/dl Normal KETONE UR Negative LAB L400.3465 1.002-1.030 Normal SP.GR. DIPSTX 1.015 LAB L400.3550 5.0 - 8.0 pH UR Normal 7.0 LAB L400.3600 Negative mg/dl PROT Normal DIPSTX Negative LAB L400.3700 Normal mg/dl Normal UROBILI Normal LAB L400.3750 Negative Normal NITRITE UR Negative LAB L400.3780 Negative /ul Normal OCCULT BLOOD-UR Negative LAB L400.3800 Negative /ul LEUK Normal ESTERASE Negative Performed By: #### L400.2010 #### [facility] [address] [place], [address] URINALYSIS, ROUTINE Collected: 12/17/2017 Status: F Source: LUCHO (DIPSTICK) 1:20 AM [facility]POS[facility] Order Comment: How was Urine Obtained? CLEAN CATCH TYPE CODE TESTS RESULT OUT OF RANGE REFERENCE UNITS LAB L400.3000 Yellow COLOR Normal Yellow LAB L400.3050 Clear Normal CLARITY Sl. Cloudy LAB L400.3200 Normal mg/dl Normal GLUCOSE, UR Normal LAB L400.3300 Negative mg/dL Normal BILIRUBIN URINE Negative LAB L400.3400 Negative mg/dl Normal KETONE UR Negative LAB L400.3465 1.002-1.030 Normal SP.GR. DIPSTX 1.015 LAB L400.3550 5.0 - 8.0 pH UR Normal 7.0 LAB L400.3600 Negative mg/dl PROT Normal DIPSTX Negative LAB L400.3700 Normal mg/dl Normal UROBILI Normal LAB L400.3750 Negative Normal NITRITE UR Negative LAB L400.3780 Negative /ul Normal OCCULT BLOOD-UR Negative LAB L400.3800 Negative /ul LEUK Normal ESTERASE Negative Performed By: #### L400.2010 #### [facility] [address] [place], [address] URINALYSIS, ROUTINE Collected: 11/20/2017 Status: F Source: BAXTER (DIPSTICK) 1:30 AM [facility]POS[facility] Order Comment: How was Urine Obtained? CATHETER SPECIMEN TYPE CODE TESTS RESULT OUT OF RANGE REFERENCE UNITS LAB L400.3000 Yellow COLOR Normal Yellow LAB L400.3050 Clear Normal CLARITY Clear LAB L400.3200 Normal mg/dl Normal GLUCOSE, UR Normal LAB L400.3300 Negative mg/dL Normal BILIRUBIN URINE Negative LAB L400.3400 Negative mg/dl High 5 KETONE UR LAB L400.3465 1.002-1.030 Normal SP.GR. DIPSTX 1.020 LAB L400.3550 5.0 - 8.0 pH UR Normal 6.0 LAB L400.3600 Negative mg/dl PROT Normal DIPSTX Negative LAB L400.3700 Normal mg/dl Normal UROBILI Normal LAB L400.3750 Negative High NITRITE UR Positive LAB L400.3780 Negative /ul High 10 OCCULT BLOOD-UR LAB L400.3800 Negative /ul High LEUK ESTERASE 100 Performed By: #### L400.2010 #### [facility] [address] [place], [place], [id number] Observed: 11/20/2017 Status: F Source: BAXTER CULTURE, URINE 1:30 AM [facility] REPOSITORY Urine Culture ORGANISM 1: Presumptive E. coli [place] Count >100,000 Presumptive E. coli: REACTION Amoxacillin/Clavulanic Acid $ <=2 S Ampicillin $ <=2 S Ampicillin/Sulbactam $ <=2 S Cefazolin $ <=4 S Cefepime $ <=1 S Ceftriaxone $ <=1 S Ciprofloxacin $ <=0.25 S ESBL - Ertapenim $$$ <=0.5 S Gentamicin $ <=1 S Imipenem *NF <=0.25 S Levofloxacin $ <=0.12 S Nitrofurantoin $ <=16 S Piperacillin/Tazobactam $$ <=4 S Tobramycin $ <=1 S Trimethoprim/Sulfametho $ <=20 S (NF) indicates non-formulary drug at [facility]. Approval by Infectious Disease Specialist required before non-formulary drugs may be ordered and/or dispensed. Performed By: #### M100.0650 #### [facility] [address] [place], [place], [address] URINALYSIS, ROUTINE Collected: 10/17/2017 Status: F Source: LUCHO (DIPSTICK) 5:00 AM [facility] REPOSITORY Order Comment: Comments: EXTRA CUUR TUBE COLLECTED How was Urine Obtained? CATHETER SPECIMEN TYPE CODE TESTS RESULT OUT OF RANGE REFERENCE UNITS LAB L400.3000 Yellow COLOR Normal Yellow LAB L400.3050 Clear Normal CLARITY Sl. Cloudy LAB L400.3200 Normal mg/dl Normal GLUCOSE, UR Normal LAB L400.3300 Negative mg/dL Normal BILIRUBIN URINE Negative LAB L400.3400 Negative mg/dl Normal KETONE UR Negative LAB L400.3465 1.002-1.030 Normal SP.GR. DIPSTX 1.010 LAB L400.3550 5.0 - 8.0 pH UR Normal 7.0 LAB L400.3600 Negative mg/dl PROT Normal DIPSTX Negative LAB L400.3700 Normal mg/dl Normal UROBILI Normal LAB L400.3750 Negative High NITRITE UR Positive LAB L400.3780 Negative /ul High 10 OCCULT BLOOD-UR LAB L400.3800 Negative /ul High LEUK ESTERASE 500 Performed By: #### L400.2011 #### [facility] [address] [facility] [address] [place], [place], [address] Observed: 10/17/2017 Status: F Source: LUCHO CULTURE, URINE 5:00 AM [facility] REPOSITORY CULTURE ADDED ON PER RUDY AT [facility]. ORDER FAXED TO MAIN LAB 10/17/17. Urine Culture ORGANISM 1: Presumptive E. coli [place] Count >100,000 Presumptive E. coli: REACTION Amoxacillin/Clavulanic Acid $ <=2 S Ampicillin $ <=2 S Ampicillin/Sulbactam $ <=2 S Cefazolin $ <=4 S Cefepime $ <=1 S Ceftriaxone $ <=1 S Ciprofloxacin $ <=0.25 S ESBL - Ertapenim $$$ <=0.5 S Gentamicin $ <=1 S Imipenem *NF <=0.25 S Levofloxacin $ <=0.12 S Nitrofurantoin $ <=16 S Piperacillin/Tazobactam $$ <=4 S Tobramycin $ <=1 S Trimethoprim/Sulfametho $ <=20 S (NF) indicates non-formulary drug at [facility]. Approval by Infectious Disease Specialist required before non-formulary drugs may be ordered and/or dispensed. Performed By: #### M100.0650 #### [facility] [place], [address] CBC W/DIFF, AUTOMATED Collected: 10/15/2017 Status: F Source: BAXTER 6:32 AM [facility] REPOSITORY Order Comment: ROOM 309 TYPE CODE TESTS RESULT OUT OF RANGE REFERENCE UNITS LAB L100.1000 4.4-11.0 K/mm3 Normal WBC 6.2 LAB L100.1200 4.2-5.4 M/mm3 Normal RBC 4.53 LAB L100.1300 12.0-15.0 g/dl Normal HGB 13.3 LAB L100.1400 37-47 % Normal HCT 42.1 LAB L100.1500 81-99 fL Normal MCV 92.9 LAB L100.1600 27.0-32.0 pg Normal MCH 29.4 LAB L100.1700 32-36 g/gl Low MCHC 31.6 LAB L100.1810 11.6-14.6 % High RDW CV 15.2 LAB L100.1820 35.1-43.9 fl High RDW SD 51.6 LAB L100.1900 150-450 K/mm3 Normal PLT 200 LAB L100.2000 6.2-12.0 fl Normal MPV 10.7 LAB L100.2100 47-70 % Normal NEUT% 60.9 LAB L100.2200 19-41 % Normal LY% 26.2 LAB L100.2300 0-10 % Normal MONO% 8.7 LAB L100.2400 0-5 % Normal EO% 3.5 LAB L100.2500 0-1 % Normal BASO% 0.5 LAB L100.2550 0.0-0.9 % Normal IM GRAN % 0.200 Result Comment: IG% - Immature Granulocytes (promyelocytes, myelocytes and metamyelocytes) > 1% indicates that a LEFT SHIFT is Present. LAB L100.2620 2.0-7.7 X10 3/uL Normal Absolute Neut 3.8 LAB L100.2720 0.83-4.51 X10 3/ul Normal Absolute Lymph 1.63 Performed By: #### L100.0100 #### [facility] [address] [place], [place], [address] BASIC METABOLIC Collected: 10/15/2017 Status: F Source: LUCHO PROFILE ([facility]) 6:32 AM [facility] REPOSITORY Order Comment: ROOM 309 TYPE CODE TESTS RESULT OUT OF RANGE REFERENCE UNITS LAB L501.0100 70-110 mg/dL Normal GLU 92 LAB L501.1000 7-18 mg/dL Normal BUN 18 LAB L501.1100 0.55-1.02 mg/dL Normal 0.74 CREAT,SERUM Result Comment: The validity of the calculated GFR AND GFRAA in patients over 70 years has not been determined. Clinical correlation is essential. LAB L501.1110 >60 mL/min Normal EST GFR 84 Result Comment: Non- GFR Calc LAB L501.1115 >60 mL/min Normal EST GFR - AA 102 Result Comment: GFR Calc LAB L501.1300 10-20 RATIO High BUN/CRE 24.4 LAB L501.2200 8.5-10.1 mg/dL CA Normal 8.8 LAB L501.5300 136-145 mmol/L NA Normal 137 LAB L501.5600 3.5-5.1 mmol/L K Normal 4.2 LAB L501.5900 98-107 mmol/L CL Normal 101 LAB L501.6100 21.0-32.0 mmol/L Normal CO2 27.0 LAB L501.6200 5-15 Normal GAP 9 Performed By: #### L500.2500, L501.9520 #### [facility] [address] [place], [address] THYROID STIM HORMONE Collected: 10/15/2017 Status: F Source: LUCHO (TSH) 6:32 AM [facility] REPOSITORY Order Comment: ROOM 309 TYPE CODE TESTS RESULT OUT OF RANGE REFERENCE UNITS LAB L501.9520 0.358-3.74 uIU/mL Normal TSH 2.80 Performed By: #### L500.2500, L501.9520 #### [facility] [address] [facility] [place], [address] URINALYSIS, ROUTINE Collected: 09/18/2017 Status: F Source: LUCHO (DIPSTICK) 4:53 AM [facility] REPOSITORY Order Comment: How was Urine Obtained? CATHETER SPECIMEN TYPE CODE TESTS RESULT OUT OF REFERENCE UNITS RANGE LAB L400.3000 Yellow COLOR Normal Yellow LAB L400.3050 Clear Sl Normal CLARITY Cloudy LAB L400.3200 Normal mg/dl Normal GLUCOSE, UR Normal LAB L400.3300 Negative mg/dL Normal BILIRUBIN URINE Negative LAB L400.3400 Negative mg/dl Normal KETONE UR Negative LAB L400.3465 1.002-1.030 1.025 Normal SP.GR. DIPSTX LAB L400.3485 Test Normal SP.GR/REFRACT. not performed LAB L400.3550 5.0 - 8.0 pH UR 6.0 Normal LAB L400.3600 Negative mg/dl PROT Normal DIPSTX Negative LAB L400.3700 Normal mg/dl Normal UROBILI Normal LAB L400.3750 Negative Normal NITRITE UR Negative LAB L400.3780 Negative /ul Normal OCCULT BLOOD-UR Negative LAB L400.3800 Negative /ul LEUK Normal ESTERASE Negative Performed By: #### L400.2010 #### [facility] [address] [place], [address] ALLERGIES ALLERGIES DATE TYPE / CODE NAME / CODE REACTION SEVERITY SOURCE 05/29/2017 Drug No Known Unknown [facility] Allergy/4160 Allergies/F00 [facility] [address]83(SNOMED [id number](RXNOR Repository CT) M) ENCOUNTERS ENCOUNTERS ADMIT/DISCHARGE ACCOUNT ADMITTING ENCOUNTER LOCATION SOURCE NUMBER CLASS 08/26/2018 [id number] [facility] [address] [facility] 08/19/2018 [id number] Ambulatory [place] [facility] Repository 07/15/2018 [id number] Ambulatory [place] 7 [facility] Repository 06/17/2018 [id number] Ambulatory [place] 1 [facility] ing[facility] Repository 05/20/2018 [id number] Ambulatory [place] 7 [facility] ing[facility] Repository 04/15/2018 [id number] Ambulatory [place] 9 [facility] ing[facility] Repository 03/18/2018 [id number] Ambulatory [place] 6 [facility] ing[facility] Repository 02/19/2018 [id number] Ambulatory [place] 1 [facility] ing:[facility] Repository 01/14/2018 [id number] Ambulatory [place] 1 [facility] ing:[facility].[place] Repository 12/17/2017 [id number] Ambulatory [place] 5 [facility] ing[facility] Repository 11/20/2017 [id number] Ambulatory [place] 6 [facility] ing[facility].[place] Repository 11/20/2017 [id number] Ambulatory [place] 9 [facility] ing:[facility] Repository 10/17/2017 [id number] Ambulatory [place] 2 [facility] ing:[facility] Repository 10/15/2017 [id number] Ambulatory [place] 2 [facility] ing:[facility] Repository 09/18/2017 [id number] Ambulatory [place] 1 [facility] ing:[facility] Repository PAYERS PAYERS ENCOUNTER GUARANTOR PAYER SUBSCRIBER SOURCE 08/26/2018 Radha Spencer Primary Radha Yepez NollettiAPOSTOLIC Insurance:MEDICARE NollettiDOB: [facility] [place] [id number] PART A BPolicy [id number]: Repository [address]Dnw: [phone] [id number] [phone] () Date:2018-08-26 08/26/2018 Secondary NOT GIVENUNK [place] Insurance:SELF PAY [facility] Number: Effective Repository Date:2018-08-26 08/19/2018 Radha A Primary NOT GIVENUNK [place] NollettiAPOSTOLIC Insurance:SELF PAY Community [place] [id number] [place], [place] Number: Effective Repository [address]Pnh: (330) Date:2018-08-19 [phone] () 07/15/2018 Radha A Primary Radha A [place] NollettiAPOSTOLIC Insurance:MEDICARE NollettiDOB: Community [place] [id number] PART A [id number] Repository [address]Fim: 330 [id number] [phone] () Date:2018-07-15 07/15/2018 Secondary NOT GIVENUNK [place] Insurance:SELF PAY [facility] Number: Effective Repository Date:2018-07-15 06/17/2018 Radha A Primary Radha A [place] NollettiAPOSTOLIC Insurance:MEDICARE NollettiDOB: Community [place] [id number] PART A [place] [id number]: Repository [address]Aya: 330 [id number] [phone] () Date:2018-06-17 06/17/2018 Secondary NOT GIVENUNK [place] Insurance:SELF PAY [facility] Number: Effective Repository Date:2018-06-17 05/20/2018 Radha A Primary Radha A [place] NollettiAPOSTOLIC Insurance:MEDICARE NollettiDOB: Community [place] [id number] PART A olicy [id number] [place] Number: Repository [address]Jrd: 330 [id number] [phone] () Date:2018-05-20 05/20/2018 Secondary NOT GIVENUNK [place] Insurance:SELF PAY [facility] Number: Effective Repository Date:2018-05-20 04/15/2018 Radha A Primary Radha A [place] NollettiAPOSTOLIC Insurance:MEDICARE NollettiDOB: Community [place] [id number] PART A [facility] [id number] Number: Repository [address]Lzl: 330 [id number] [phone] () Date:2018-04-15 04/15/2018 Secondary NOT GIVENUNK [place] Insurance:SELF PAY [facility]: Effective Repository Date:2018-04-15 03/18/2018 Radha A Primary Radha A [place] NollettiAPOSTOLIC Insurance:MEDICARE NollettiDOB: Community [place] [id number] PART A [facility] [id number] Number: Repository [address]Ezg: 330 [id number] [phone] () Date:2018-03-18 03/18/2018 Secondary NOT GIVENUNK [place] Insurance:SELF PAY [facility] Number: Effective Repository Date:2018-03-18 02/19/2018 Radha A Primary NOT GIVENUNK [place] NollettiAPOSTOLIC Insurance:SELF PAY [facility] [place] [id number] [facility], [place] Number: Effective Repository [phone]: Date:2018-02-19 ~330-6 (HP) 01/14/2018 Radha A Primary Radha A [place] NollettiAPOSTOLIC Insurance:MEDICARE NollettiDOB: Community [place] [id number] PART A [facility] [id number] Number: Repository [id number]: [id number] [phone] Date:2018-01-14 (HP) 01/14/2018 Secondary NOT GIVENUNK [place] Insurance:SELF PAY [facility] Number: Effective Repository Date:2018-01-14 12/17/2017 Radha A Primary Radha A [place] NollettiAPOSTOLIC Insurance:MEDICARE NollettiDOB: Community [place] [id number] PART A [facility] [id number] Number: Repository [id number]: [id number] [phone] Date:2017-12-17 (HP) 12/17/2017 Secondary NOT GIVENUNK [place] Insurance:SELF PAY [facility] Number: Effective Repository Date:2017-12-17 11/20/2017 RADHA Spencer Primary NOT GIVENUNK [place] NOLLETTIAPOSTOLIC Insurance:SELF PAY Community [place] [id number] [facility] Number: Effective Repository [address]Mum: Date:2017-11-20 ~330-6 (HP) 11/20/2017 Radha Spencer Primary NOT GIVENUNK [place] NollettiAPOSTOLIC Insurance:SELF PAY [facility] [place] [id number] [facility] Number: Effective Repository [address]Sqi: Date:2017-11-20 ~330-6 (HP) 10/17/2017 Radha Spencer Primary Radha Spencer [place] NollettiAPOSTOLIC Insurance:MEDICARE NollettiDOB: Community [place] [id number] PART A [facility] [id number] Number: Repository [address]Bln: [id number] [phone] Date:2017-10-17 (HP) 10/17/2017 Secondary NOT GIVENUNK [place] Insurance:SELF PAY [facility] Number: Effective Repository Date:2017-10-17 10/15/2017 Radha A Primary Radha A [place] NollettiAPOSTOLIC Insurance:MEDICARE NollettiDOB: Community [place] [id number] PART A [facility] [id number] Number: Repository [id number]: [id number] [phone] Date:2017-10-15 (HP) 10/15/2017 Secondary NOT GIVENUNK [place] Insurance:SELF PAY [facility] Number: Effective Repository Date:2017-10-15 09/18/2017 Radha Spencer Primary Radha A [place] NollettiAPOSTOLIC Insurance:MEDICARE NollettiDOB: Community [place] [id number] PART A [facility] [id number] Number: Repository [address]Kjn: [id number] [phone] Date:2017-09-18 (HP) 09/18/2017 Secondary NOT GIVENUNK [place] Insurance:SELF PAY [facility] Number: Effective Repository Date:2017-09-18
== END ==
LOC: OLS.ACH 05:00
PROVIDERS: Visit Provider Family Medicine
DX: E03.9 Hypothyroidism, unspecified (principal)
CPT/HCPCS: 36415; 84443

== ENCOUNTER → 2018-09-16 04:00 | Outpatient (REF) | payer MEDICARE, SELFPAY ==
[2018-09-16 07:30] LABS: Color, Urine Yellow (Yellow); Glucose, Dipstick Normal (Normal); Ketone-Dipstick Negative (Negative); Leukocyte Esterase-Dipstick Negative /ul (Negative); Nitrite-Dipstick Negative (Negative); Occult Blood-Urine 10 /ul (Negative); Protein-Dipstick Negative (Negative); Urine Bilirubin Dipstick Negative (Negative); Urine Clarity Clear (Clear); Urine Urobilinogen Normal (Normal)
== END ==
LOC: OLS.ACH 04:00
PROVIDERS: Visit Provider Family Medicine
DX: N13.6 Pyonephrosis (principal)
CPT/HCPCS: 81002

== ENCOUNTER → 2018-10-21 04:00 | Outpatient (REF) | payer MEDICARE, SELFPAY ==
[2018-10-21 08:56] LABS: Mucous, Urine 0 SEEN /hpf (<or=2+); Squamous Epithelial Cells - UA 0 SEEN /hpf (5-10)
[2018-10-21 09:07] LABS: Absolute Lymphocyte Count 1.57 X10^3/ul (0.83-4.51); Absolute Neutrophil Count 3.9 X10^3/uL (2.0-7.7); Basophil# 0.03 X10^3/uL; Basophil% 0.5 % (0-1); Eosinophil# 0.35 X10^3/uL; Eosinophils% 5.5 % (0-5); Hematocrit 42.6 % (37-47); Hemoglobin 13.6 g/dl (12.0-15.0); Lymphocyte # 1.57 X10^3/ul (4.0); Lymphocyte % 24.6 % (19-41); Mean Corp Hgb Conc 31.9 g/gl (32-36); Mean Corpuscular Hgb 31.3 pg (27.0-32.0); Mean Corpuscular Volume 97.9 fL (81-99); Mean Platelet Vol. 10.7 fl (6.2-12.0); Monocyte# 0.49 X10^3/uL; Monocyte% 7.7 % (0-10); Neutrophil # 3.94 X10^3/uL (2.7-7.7); Neutrophil % 61.5 % (47-70); Platelet Count 200 K/mm3 (150-450); RBC Distribution Width SD 50.6 fl (35.1-43.9); Red Blood Count 4.35 M/mm3 (4.2-5.4); White Blood Count 6.4 K/mm3 (4.4-11.0)
[2018-10-21 09:09] LABS: POSITIVE COUNT NO; POSITIVE DIFFERENTIAL NO; POSITIVE MORPHOLOGY NO
[2018-10-21 09:19] LABS: Color, Urine Yellow (Yellow); Glucose, Dipstick Normal (Normal); Ketone-Dipstick Negative (Negative); Leukocyte Esterase-Dipstick Negative /ul (Negative); Nitrite-Dipstick Negative (Negative); Occult Blood-Urine Negative /ul (Negative); Protein-Dipstick Negative (Negative); Urine Bilirubin Dipstick Negative (Negative); Urine Clarity Sl. Cloudy (Clear); Urine Urobilinogen Normal (Normal)
[2018-10-21 09:31] LABS: Red Blood Cells-Urine 0-5 SEEN /hpf (0-5); White Blood Cells 0-5 SEEN /hpf (0-5)
[2018-10-21 09:32] LABS: Amorphous Sediment 2+; Bacteria 2+ /hpf (None Seen)
[2018-10-21 09:49] LABS: Anion Gap 7 (5-15); BUN 20 mg/dL (7-18); BUN/Creat Ratio 26.7 RATIO (10-20); Calcium,Total 8.3 mg/dL (8.5-10.1); Chloride 109 mmol/L (98-107); Creatinine, Serum 0.75 mg/dL (0.55-1.02); EST Glomerular Filtration Rate 82 mL/min (>60); Est Glom Filt Rate - Afr Amer 100 mL/min (>60); Glucose 92 mg/dL (74-106); Potassium 4.5 mmol/L (3.5-5.1); Sodium Level 140 mmol/L (136-145); Thyroid Stim Hormone (TSH) 2.05 uIU/mL (0.358-3.74)
== END ==
LOC: OLS.ACH 04:00
PROVIDERS: Visit Provider Family Medicine
DX: E03.9 Hypothyroidism, unspecified (principal); I48.0 Paroxysmal atrial fibrillation; N39.490 Overflow incontinence; N20.0 Calculus of kidney; N13.6 Pyonephrosis
CPT/HCPCS: 36415; 80048; 81001; 84443; 85025

== ENCOUNTER → 2018-10-24 23:00 | Outpatient (REF) | payer MEDICARE, SELFPAY | LOC: OLS.ACH 23:00 | PROVIDERS: Visit Provider Family Medicine | DX: R82.71 Bacteriuria (principal) | CPT/HCPCS: 87086 ==

== ENCOUNTER → 2018-11-18 02:40 | Outpatient (REF) | payer MEDICARE, SELFPAY ==
[2018-11-18 08:17] LABS: Color, Urine Yellow (Yellow); Glucose, Dipstick Normal (Normal); Ketone-Dipstick 5 mg/dl (Negative); Leukocyte Esterase-Dipstick 500 /ul (Negative); Nitrite-Dipstick Negative (Negative); Occult Blood-Urine 25 /ul (Negative); Protein-Dipstick 15 mg/dl (Negative); Urine Bilirubin Dipstick Negative (Negative); Urine Clarity Clear (Clear); Urine Urobilinogen Normal (Normal)
== END ==
LOC: OLS.ACH 02:40
PROVIDERS: Visit Provider Family Medicine
DX: N13.6 Pyonephrosis (principal); N39.490 Overflow incontinence; N20.2 Calculus of kidney with calculus of ureter
CPT/HCPCS: 81002; 87077; 87086; 87088; 87186

== ENCOUNTER → 2018-12-16 02:20 | Outpatient (REF) | payer MEDICARE, SELFPAY ==
[2018-12-16 07:21] LABS: Color, Urine Yellow (Yellow); Glucose, Dipstick Normal (Normal); Ketone-Dipstick 5 mg/dl (Negative); Leukocyte Esterase-Dipstick 25 /ul (Negative); Nitrite-Dipstick Negative (Negative); Occult Blood-Urine Negative /ul (Negative); Protein-Dipstick Negative (Negative); Specific Gravity, Urine 1.025 (1.002-1.030); Urine Bilirubin Dipstick Negative (Negative); Urine Clarity Sl. Cloudy (Clear); Urine Urobilinogen Normal (Normal)
== END ==
LOC: OLS.ACH 02:20
PROVIDERS: Visit Provider Family Medicine
DX: N13.6 Pyonephrosis (principal); N39.490 Overflow incontinence
CPT/HCPCS: 81002

== ENCOUNTER → 2019-01-13 04:00 | Outpatient (REF) | payer MEDICARE, SELFPAY ==
[2019-01-13 07:57] LABS: Absolute Lymphocyte Count 1.76 X10^3/ul (0.83-4.51); Absolute Neutrophil Count 3.8 X10^3/uL (2.0-7.7); Basophil# 0.04 X10^3/uL; Basophil% 0.6 % (0-1); Eosinophil# 0.36 X10^3/uL; Eosinophils% 5.6 % (0-5); Hematocrit 46.7 % (37-47); Hemoglobin 15.2 g/dl (12.0-15.0); Lymphocyte # 1.76 X10^3/ul (4.0); Lymphocyte % 27.3 % (19-41); Mean Corp Hgb Conc 32.5 g/gl (32-36); Mean Corpuscular Hgb 31.7 pg (27.0-32.0); Mean Corpuscular Volume 97.5 fL (81-99); Mean Platelet Vol. 10.8 fl (6.2-12.0); Monocyte# 0.44 X10^3/uL; Monocyte% 6.8 % (0-10); Neutrophil # 3.84 X10^3/uL (2.7-7.7); Neutrophil % 59.5 % (47-70); Platelet Count 181 K/mm3 (150-450); RBC Distribution Width CV 13.8 % (11.6-14.6); RBC Distribution Width SD 49.5 fl (35.1-43.9); Red Blood Count 4.79 M/mm3 (4.2-5.4); White Blood Count 6.5 K/mm3 (4.4-11.0)
[2019-01-13 08:00] LABS: Color, Urine Yellow (Yellow); Glucose, Dipstick Normal (Normal); Ketone-Dipstick Negative (Negative); Leukocyte Esterase-Dipstick Negative /ul (Negative); Nitrite-Dipstick Negative (Negative); Occult Blood-Urine Negative /ul (Negative); Protein-Dipstick Negative (Negative); Urine Bilirubin Dipstick Negative (Negative); Urine Clarity Clear (Clear); Urine Urobilinogen Normal (Normal)
[2019-01-13 08:01] LABS: POSITIVE COUNT NO; POSITIVE DIFFERENTIAL NO; POSITIVE MORPHOLOGY NO
[2019-01-13 08:31] LABS: Anion Gap 7 (5-15); BUN 20 mg/dL (7-18); BUN/Creat Ratio 24.9 RATIO (10-20); Calcium,Total 8.8 mg/dL (8.5-10.1); Chloride 109 mmol/L (98-107); EST Glomerular Filtration Rate 76 mL/min (>60); Est Glom Filt Rate - Afr Amer 92 mL/min (>60); Glucose 96 mg/dL (74-106); Potassium 4.4 mmol/L (3.5-5.1); Sodium Level 140 mmol/L (136-145); Thyroid Stim Hormone (TSH) 1.42 uIU/mL (0.358-3.74)
== END ==
LOC: OLS.ACH 04:00
PROVIDERS: Visit Provider Family Medicine
DX: E03.9 Hypothyroidism, unspecified (principal); I48.0 Paroxysmal atrial fibrillation; N20.0 Calculus of kidney; N13.6 Pyonephrosis; N39.490 Overflow incontinence
CPT/HCPCS: 36415; 80048; 81002; 84443; 85025

== ENCOUNTER → 2019-02-18 | Outpatient (REF) | payer MEDICARE, SELFPAY ==
[2019-02-18 07:00] LABS: Color, Urine Yellow (Yellow); Glucose, Dipstick Normal (Normal); Ketone-Dipstick Negative (Negative); Leukocyte Esterase-Dipstick Negative /ul (Negative); Nitrite-Dipstick Negative (Negative); Occult Blood-Urine Negative /ul (Negative); Protein-Dipstick Negative (Negative); Urine Bilirubin Dipstick Negative (Negative); Urine Clarity Sl. Cloudy (Clear); Urine Urobilinogen Normal (Normal)
[2019-02-18 07:38] LABS: Creatinine, Serum 0.74 mg/dL (0.55-1.02); EST Glomerular Filtration Rate 83 mL/min (>60); Est Glom Filt Rate - Afr Amer 101 mL/min (>60)
== END | disposition home or self-care (01) ==
LOC: OLS.ACH 05:00
PROVIDERS: Visit Provider Family Medicine
DX: N13.6 Pyonephrosis (principal); N39.490 Overflow incontinence; G20 Parkinson's disease
CPT/HCPCS: 36415; 81002; 82565

== ENCOUNTER → 2019-03-16 | Outpatient (REF) | payer MEDICARE, SELFPAY ==
[2019-03-17 07:14] LABS: Color, Urine Yellow (Yellow); Glucose, Dipstick Normal (Normal); Ketone-Dipstick 5 mg/dl (Negative); Leukocyte Esterase-Dipstick 25 /ul (Negative); Nitrite-Dipstick Negative (Negative); Occult Blood-Urine 25 /ul (Negative); Protein-Dipstick Negative (Negative); Specific Gravity, Urine 1.025 (1.002-1.030); Urine Bilirubin Dipstick Negative (Negative); Urine Clarity Sl. Cloudy (Clear); Urine Urobilinogen Normal (Normal)
== END | disposition home or self-care (01) ==
LOC: OLS.ACH 23:45
PROVIDERS: Visit Provider Family Medicine
DX: N13.6 Pyonephrosis (principal); N39.490 Overflow incontinence
CPT/HCPCS: 81002

== ENCOUNTER → 2019-04-14 | Outpatient (REF) | payer MEDICARE, SELFPAY ==
[2019-04-14 08:33] LABS: Absolute Lymphocyte Count 1.54 X10^3/uL (0.83-4.51); Absolute Neutrophil Count 3.7 X10^3/uL (2.0-7.7); Basophil# 0.04 X10^3/uL; Basophil% 0.7 % (0-1); Eosinophil# 0.28 X10^3/uL; Eosinophils% 4.7 % (0-5); Hematocrit 48.5 % (37-47); Hemoglobin 15.9 g/dL (12.0-15.0); Lymphocyte # 1.54 X10^3/ul (4.0); Mean Corp Hgb Conc 32.8 g/dL (32-36); Mean Corpuscular Hgb 32.3 pg (27.0-32.0); Mean Corpuscular Volume 98.6 fL (81-99); Mean Platelet Vol. 10.8 fl (6.2-12.0); Monocyte# 0.35 X10^3/uL; Monocyte% 5.9 % (0-10); NRBC Flagged by Analyzer 0 % (0-5); Neutrophil % 62.4 % (47-70); Platelet Count 189 K/mm3 (150-450); RBC Distribution Width CV 12.8 % (11.6-14.6); RBC Distribution Width SD 46.4 fl (35.1-43.9); Red Blood Count 4.92 M/mm3 (4.2-5.4); White Blood Count 5.9 K/mm3 (4.4-11.0)
[2019-04-14 08:48] LABS: Anion Gap 7 (5-15); BUN 15 mg/dL (7-18); BUN/Creat Ratio 16.1 RATIO (10-20); Calcium,Total 8.9 mg/dL (8.5-10.1); Chloride 106 mmol/L (98-107); Creatinine, Serum 0.93 mg/dL (0.55-1.02); EST Glomerular Filtration Rate 64 mL/min (>60); Est Glom Filt Rate - Afr Amer 78 mL/min (>60); Glucose 97 mg/dL (74-106); Potassium 4.2 mmol/L (3.5-5.1); Sodium Level 137 mmol/L (136-145); Thyroid Stim Hormone (TSH) 2.07 uIU/mL (0.358-3.74)
[2019-04-15 08:42] LABS: Color, Urine Yellow (Yellow); Glucose, Dipstick Normal (Normal); Ketone-Dipstick 5 mg/dl (Negative); Leukocyte Esterase-Dipstick 500 /ul (Negative); Nitrite-Dipstick Positive (Negative); Occult Blood-Urine Negative /ul (Negative); Protein-Dipstick 15 mg/dl (Negative); Urine Bilirubin Dipstick Negative (Negative); Urine Clarity Sl. Cloudy (Clear); Urine Urobilinogen Normal (Normal)
== END | disposition home or self-care (01) ==
LOC: OLS.ACH 05:00
PROVIDERS: Visit Provider Family Medicine
DX: N13.6 Pyonephrosis (principal); E03.9 Hypothyroidism, unspecified; I48.0 Paroxysmal atrial fibrillation; N20.0 Calculus of kidney; N39.490 Overflow incontinence
CPT/HCPCS: 36415; 80048; 81002; 84443; 85025; 87077; 87086; 87088; 87186

== ENCOUNTER → 2019-05-19 02:00 | Outpatient (REF) | payer MEDICARE, SELFPAY ==
[2019-05-19 07:43] LABS: Color, Urine Yellow (Yellow); Glucose, Dipstick Normal (Normal); Ketone-Dipstick 5 mg/dl (Negative); Leukocyte Esterase-Dipstick 25 /ul (Negative); Nitrite-Dipstick Negative (Negative); Occult Blood-Urine Negative /ul (Negative); Protein-Dipstick Negative (Negative); Specific Gravity, Urine 1.025 (1.002-1.030); Urine Bilirubin Dipstick Negative (Negative); Urine Clarity Sl. Cloudy (Clear); Urine Urobilinogen 1 mg/dl (Normal)
== END ==
LOC: OLS.ACH 02:00
PROVIDERS: Visit Provider Family Medicine
DX: N13.6 Pyonephrosis (principal); N39.490 Overflow incontinence
CPT/HCPCS: 81002; 87086

== ENCOUNTER → 2019-06-16 02:35 | Outpatient (REF) | payer MEDICARE, SELFPAY ==
[2019-06-16 08:45] LABS: Color, Urine Yellow (Yellow); Glucose, Dipstick Normal (Normal); Ketone-Dipstick Negative (Negative); Leukocyte Esterase-Dipstick Negative /ul (Negative); Nitrite-Dipstick Negative (Negative); Occult Blood-Urine Negative /ul (Negative); Protein-Dipstick Negative (Negative); Urine Bilirubin Dipstick Negative (Negative); Urine Clarity Sl. Cloudy (Clear); Urine Urobilinogen Normal (Normal)
== END ==
LOC: OLS.ACH 02:35
PROVIDERS: Visit Provider Family Medicine
DX: N13.6 Pyonephrosis (principal); N39.490 Overflow incontinence
CPT/HCPCS: 81002; 87086

== ENCOUNTER → 2019-07-12 22:45 | Outpatient (REF) | payer MEDICARE, SELFPAY ==
[2019-07-13 11:06] LABS: Color, Urine Yellow (Yellow); Glucose, Dipstick Normal (Normal); Ketone-Dipstick 5 mg/dl (Negative); Leukocyte Esterase-Dipstick 100 /ul (Negative); Nitrite-Dipstick Negative (Negative); Occult Blood-Urine Negative /ul (Negative); Protein-Dipstick Negative (Negative); Specific Gravity, Urine 1.025 (1.002-1.030); Urine Bilirubin Dipstick Negative (Negative); Urine Clarity Cloudy (Clear); Urine Urobilinogen Normal (Normal)
== END ==
LOC: OLS.ACH 22:45
PROVIDERS: Visit Provider Family Medicine
DX: N20.2 Calculus of kidney with calculus of ureter (principal)
CPT/HCPCS: 81002; 87077; 87086; 87088; 87186

== ENCOUNTER → 2019-07-21 05:00 | Outpatient (REF) | payer MEDICARE, SELFPAY ==
[2019-07-21 07:53] LABS: Absolute Lymphocyte Count 1.46 X10^3/uL (0.83-4.51); Absolute Neutrophil Count 3.8 X10^3/uL (2.0-7.7); Basophil# 0.06 X10^3/uL; Eosinophil# 0.34 X10^3/uL; Eosinophils% 5.6 % (0-5); Hematocrit 45.3 % (37-47); Hemoglobin 14.7 g/dL (12.0-15.0); Lymphocyte # 1.46 X10^3/ul (4.0); Lymphocyte % 23.9 % (19-41); Mean Corp Hgb Conc 32.5 g/dL (32-36); Mean Corpuscular Hgb 31.9 pg (27.0-32.0); Mean Corpuscular Volume 98.3 fL (81-99); Monocyte# 0.42 X10^3/uL; Monocyte% 6.9 % (0-10); NRBC Flagged by Analyzer 0 % (0-5); Neutrophil # 3.82 X10^3/uL (2.7-7.7); Neutrophil % 62.3 % (47-70); Platelet Count 184 K/mm3 (150-450); RBC Distribution Width CV 13.2 % (11.6-14.6); RBC Distribution Width SD 47.8 fl (35.1-43.9); Red Blood Count 4.61 M/mm3 (4.2-5.4); White Blood Count 6.1 K/mm3 (4.4-11.0)
[2019-07-21 08:26] LABS: Anion Gap 10 (5-15); BUN 19 mg/dL (7-18); BUN/Creat Ratio 20.4 RATIO (10-20); Calcium,Total 8.7 mg/dL (8.5-10.1); Chloride 106 mmol/L (98-107); Creatinine, Serum 0.93 mg/dL (0.55-1.02); EST Glomerular Filtration Rate 64 mL/min (>60); Est Glom Filt Rate - Afr Amer 77 mL/min (>60); Glucose 88 mg/dL (74-106); Potassium 4.1 mmol/L (3.5-5.1); Sodium Level 139 mmol/L (136-145); Thyroid Stim Hormone (TSH) 2.45 uIU/mL (0.358-3.74)
== END ==
LOC: OLS.ACH 05:00
PROVIDERS: Visit Provider Family Medicine
DX: E03.9 Hypothyroidism, unspecified (principal); I48.0 Paroxysmal atrial fibrillation; N20.0 Calculus of kidney
CPT/HCPCS: 36415; 80048; 84443; 85025

== ENCOUNTER → 2019-08-18 05:00 | Outpatient (REF) | payer MEDICARE, SELFPAY ==
[2019-08-18 07:20] LABS: Color, Urine Yellow (Yellow); Glucose, Dipstick Normal (Normal); Ketone-Dipstick 5 mg/dl (Negative); Leukocyte Esterase-Dipstick Negative /ul (Negative); Nitrite-Dipstick Negative (Negative); Occult Blood-Urine 25 /ul (Negative); Protein-Dipstick Negative (Negative); Specific Gravity, Urine 1.025 (1.002-1.030); Urine Bilirubin Dipstick Negative (Negative); Urine Clarity Sl. Cloudy (Clear); Urine Urobilinogen Normal (Normal)
[2019-08-18 07:35] LABS: EST Glomerular Filtration Rate 76 mL/min (>60); Est Glom Filt Rate - Afr Amer 92 mL/min (>60)
== END ==
LOC: OLS.ACH 05:00
PROVIDERS: Visit Provider Family Medicine
DX: G20 Parkinson's disease (principal); N13.6 Pyonephrosis; N39.490 Overflow incontinence
CPT/HCPCS: 36415; 81002; 82565; 87086

== ENCOUNTER → 2019-09-08 02:30 | Outpatient (REF) | payer MEDICARE, SELFPAY ==
[2019-09-08 08:00] LABS: Color, Urine Yellow (Yellow); Glucose, Dipstick Normal (Normal); Ketone-Dipstick 5 mg/dl (Negative); Leukocyte Esterase-Dipstick 25 /ul (Negative); Nitrite-Dipstick Negative (Negative); Occult Blood-Urine 150 /ul (Negative); Protein-Dipstick Negative (Negative); Specific Gravity, Urine 1.025 (1.002-1.030); Urine Bilirubin Dipstick Negative (Negative); Urine Clarity Sl. Cloudy (Clear); Urine Urobilinogen Normal (Normal)
== END ==
LOC: OLS.ACH 02:30
PROVIDERS: Visit Provider Family Medicine
DX: N13.6 Pyonephrosis (principal); N39.490 Overflow incontinence
CPT/HCPCS: 81002; 87086

== ENCOUNTER → 2019-09-15 02:00 | Outpatient (REF) | payer MEDICARE, SELFPAY ==
[2019-09-15 07:59] LABS: Color, Urine Yellow (Yellow); Glucose, Dipstick Normal (Normal); Ketone-Dipstick 5 mg/dl (Negative); Leukocyte Esterase-Dipstick 25 /ul (Negative); Nitrite-Dipstick Negative (Negative); Occult Blood-Urine 250 /ul (Negative); Protein-Dipstick Negative (Negative); Urine Bilirubin Dipstick Negative (Negative); Urine Clarity Sl. Cloudy (Clear); Urine Urobilinogen Normal (Normal)
== END ==
LOC: OLS.ACH 02:00
PROVIDERS: Visit Provider Family Medicine
DX: N13.6 Pyonephrosis (principal); N39.490 Overflow incontinence
CPT/HCPCS: 81002; 87077; 87086; 87088; 87186

== ENCOUNTER → 2019-10-01 02:40 | Outpatient (REF) | payer MEDICARE, SELFPAY | LOC: OLS.ACH 02:40 | PROVIDERS: Visit Provider Family Medicine | DX: N20.0 Calculus of kidney (principal) | CPT/HCPCS: 87086; 87088 ==

== ENCOUNTER → 2019-10-13 02:00 | Outpatient (REF) | payer MEDICARE, SELFPAY | LOC: OLS.ACH 02:00 | PROVIDERS: Visit Provider Preventive Medicine Occupational Medicine | DX: N13.6 Pyonephrosis (principal); N39.490 Overflow incontinence | CPT/HCPCS: 87086; 87088 ==

== ENCOUNTER → 2019-10-20 04:00 | Outpatient (REF) | payer MEDICARE, SELFPAY ==
[2019-10-20 08:16] LABS: Absolute Neutrophil Count 4.2 X10^3/uL (2.0-7.7); Basophil# 0.07 X10^3/uL; Basophil% 1.1 % (0-1); Eosinophil# 0.38 X10^3/uL; Hematocrit 46.8 % (37-47); Lymphocyte % 21.9 % (19-41); Mean Corp Hgb Conc 32.1 g/dL (32-36); Mean Corpuscular Hgb 31.3 pg (27.0-32.0); Mean Corpuscular Volume 97.5 fL (81-99); Monocyte# 0.36 X10^3/uL; Monocyte% 5.6 % (0-10); NRBC Flagged by Analyzer 0 % (0-5); Neutrophil # 4.15 X10^3/uL (2.7-7.7); Neutrophil % 65.1 % (47-70); Platelet Count 191 K/mm3 (150-450); RBC Distribution Width CV 12.9 % (11.6-14.6); RBC Distribution Width SD 46.3 fl (35.1-43.9); White Blood Count 6.4 K/mm3 (4.4-11.0)
[2019-10-20 08:49] LABS: Anion Gap 8 (5-15); BUN 14 mg/dL (7-18); BUN/Creat Ratio 15.9 RATIO (10-20); Chloride 105 mmol/L (98-107); Creatinine, Serum 0.88 mg/dL (0.55-1.02); EST Glomerular Filtration Rate 68 mL/min (>60); Est Glom Filt Rate - Afr Amer 82 mL/min (>60); Glucose 93 mg/dL (74-106); Potassium 4.1 mmol/L (3.5-5.1); Sodium Level 138 mmol/L (136-145); Thyroid Stim Hormone (TSH) 1.98 uIU/mL (0.358-3.74)
== END ==
LOC: OLS.ACH 04:00
PROVIDERS: Visit Provider Family Medicine
DX: E03.9 Hypothyroidism, unspecified (principal); I48.0 Paroxysmal atrial fibrillation; N20.0 Calculus of kidney; N13.6 Pyonephrosis; N39.490 Overflow incontinence
CPT/HCPCS: 36415; 80048; 84443; 85025

== ENCOUNTER → 2019-11-09 20:00 | Outpatient (REF) | payer MEDICARE, SELFPAY | LOC: OLS.ACH 20:00 | PROVIDERS: Visit Provider Family Medicine | DX: N13.6 Pyonephrosis (principal); N39.490 Overflow incontinence | CPT/HCPCS: 87077; 87086; 87088; 87106; 87186 ==

== ENCOUNTER → 2020-01-19 05:00 | Outpatient (REF) | payer MEDICARE, SELFPAY ==
[2020-01-19 06:27] LABS: Absolute Lymphocyte Count 1.61 X10^3/uL (0.83-4.51); Absolute Neutrophil Count 4.3 X10^3/uL (2.0-7.7); Basophil# 0.04 X10^3/uL; Basophil% 0.6 % (0-1); Eosinophil# 0.31 X10^3/uL; Eosinophils% 4.6 % (0-5); Hematocrit 45.2 % (37-47); Lymphocyte # 1.61 X10^3/ul (4.0); Lymphocyte % 24.1 % (19-41); Mean Corp Hgb Conc 33.2 g/dL (32-36); Mean Corpuscular Hgb 31.9 pg (27.0-32.0); Mean Corpuscular Volume 96.2 fL (81-99); Monocyte# 0.45 X10^3/uL; Monocyte% 6.7 % (0-10); NRBC Flagged by Analyzer 0 % (0-5); Neutrophil # 4.26 X10^3/uL (2.7-7.7); Neutrophil % 63.7 % (47-70); Platelet Count 181 K/mm3 (150-450); RBC Distribution Width CV 13.3 % (11.6-14.6); RBC Distribution Width SD 47.8 fl (35.1-43.9); White Blood Count 6.7 K/mm3 (4.4-11.0)
[2020-01-19 06:53] LABS: Anion Gap 5 (5-15); BUN 16 mg/dL (7-18); Chloride 106 mmol/L (98-107); EST Glomerular Filtration Rate 89 mL/min (>60); Est Glom Filt Rate - Afr Amer 108 mL/min (>60); Glucose 89 mg/dL (74-106); Potassium 4.7 mmol/L (3.5-5.1); Sodium Level 138 mmol/L (136-145); Thyroid Stim Hormone (TSH) 5.27 uIU/mL (0.358-3.74)
== END ==
LOC: OLS.ACH 05:00
PROVIDERS: Visit Provider Family Medicine
DX: E03.9 Hypothyroidism, unspecified (principal); I48.0 Paroxysmal atrial fibrillation; N20.0 Calculus of kidney
CPT/HCPCS: 36415; 80048; 84443; 85025

== ENCOUNTER → 2020-02-17 04:00 | Outpatient (REF) | payer MEDICARE, SELFPAY ==
[2020-02-17 09:15] LABS: Creatinine, Serum 0.81 mg/dL (0.55-1.02); EST Glomerular Filtration Rate 75 mL/min (>60); Est Glom Filt Rate - Afr Amer 90 mL/min (>60)
== END ==
LOC: OLS.ACH 04:00
PROVIDERS: Referring Provider Family Medicine; Visit Provider Family Medicine
DX: G20 Parkinson's disease (principal)
CPT/HCPCS: 36415; 82565

== ENCOUNTER → 2020-03-01 04:00 | Outpatient (REF) | payer MEDICARE, SELFPAY ==
[2020-03-01 07:40] LABS: Thyroid Stim Hormone (TSH) 1.88 uIU/mL (0.358-3.74)
== END ==
LOC: OLS.ACH 04:00
PROVIDERS: Referring Provider Family Medicine; Visit Provider Family Medicine
DX: E03.9 Hypothyroidism, unspecified (principal)
CPT/HCPCS: 36415; 84443

== ENCOUNTER → 2020-04-19 04:30 | Outpatient (REF) | payer MEDICARE, SELFPAY ==
[2020-04-19 08:05] LABS: Absolute Lymphocyte Count 1.27 X10^3/uL (0.83-4.51); Absolute Neutrophil Count 3.9 X10^3/uL (2.0-7.7); Basophil# 0.05 X10^3/uL; Basophil% 0.8 % (0-1); Eosinophil# 0.27 X10^3/uL; Eosinophils% 4.5 % (0-5); Hematocrit 44.4 % (37-47); Hemoglobin 14.3 g/dL (12.0-15.0); Lymphocyte # 1.27 X10^3/ul (4.0); Lymphocyte % 21.4 % (19-41); Mean Corp Hgb Conc 32.2 g/dL (32-36); Mean Corpuscular Hgb 31.7 pg (27.0-32.0); Mean Corpuscular Volume 98.4 fL (81-99); Mean Platelet Vol. 11.2 fl (6.2-12.0); Monocyte# 0.44 X10^3/uL; Monocyte% 7.4 % (0-10); NRBC Flagged by Analyzer 0 % (0-5); Neutrophil % 65.7 % (47-70); Platelet Count 185 K/mm3 (150-450); RBC Distribution Width CV 13.2 % (11.6-14.6); Red Blood Count 4.51 M/mm3 (4.2-5.4); White Blood Count 5.9 K/mm3 (4.4-11.0)
[2020-04-19 08:27] LABS: Anion Gap 5 (5-15); BUN 16 mg/dL (7-18); BUN/Creat Ratio 24.4 RATIO (10-20); Calcium,Total 8.5 mg/dL (8.5-10.1); Chloride 108 mmol/L (98-107); Creatinine, Serum 0.66 mg/dL (0.55-1.02); EST Glomerular Filtration Rate 95 mL/min (>60); Est Glom Filt Rate - Afr Amer 115 mL/min (>60); Glucose 82 mg/dL (74-106); Potassium 3.8 mmol/L (3.5-5.1); Sodium Level 139 mmol/L (136-145); Thyroid Stim Hormone (TSH) 2.56 uIU/mL (0.358-3.74)
== END ==
LOC: OLS.ACH 04:30
PROVIDERS: Referring Provider Family Medicine; Visit Provider Family Medicine
DX: E03.9 Hypothyroidism, unspecified (principal); I48.0 Paroxysmal atrial fibrillation; N20.0 Calculus of kidney
CPT/HCPCS: 36415; 80048; 84443; 85025

== ENCOUNTER → 2020-05-21 12:00 | Outpatient (REF) | payer MEDICARE, SELFPAY ==
[2020-05-21 09:49] LABS: Color, Urine Yellow (Yellow); Glucose, Dipstick Normal (Normal); Ketone-Dipstick 15 mg/dl (Negative); Leukocyte Esterase-Dipstick 100 /ul (Negative); Nitrite-Dipstick Negative (Negative); Occult Blood-Urine 10 /ul (Negative); Protein-Dipstick Negative (Negative); Specific Gravity, Urine 1.025 (1.002-1.030); Urine Bilirubin Dipstick Negative (Negative); Urine Clarity Sl. Cloudy (Clear); Urine Urobilinogen Normal (Normal)
== END ==
LOC: OLS.ACH 12:00
PROVIDERS: Family Medicine; Referring Provider Family Medicine; Visit Provider Family Medicine
DX: R41.0 Disorientation, unspecified (principal)
CPT/HCPCS: 81002; 87077; 87086; 87088; 87186

== ENCOUNTER → 2020-06-09 | Outpatient (REF) | payer MEDICARE, SELFPAY | END | disposition home or self-care (01) | LOC: LABSPEC 05:00 | PROVIDERS: Referring Provider Family Medicine; Visit Provider Family Medicine | DX: Z03.818 Encounter for observation for suspected exposure to other biological agents ruled out (principal) | CPT/HCPCS: 87635; U0003 ==

== ENCOUNTER → 2020-06-16 05:00 | Outpatient (REF) | payer MEDICARE, SELFPAY | LOC: OLS.ACH 05:00 | PROVIDERS: Visit Provider Family Medicine | DX: Z11.59 Encounter for screening for other viral diseases (principal) | CPT/HCPCS: 87635; U0003 ==

== ENCOUNTER → 2020-06-18 05:00 | Outpatient (REF) | payer MEDICARE, MEDICAID, SELFPAY ==
[2020-06-18 08:15] LABS: Absolute Lymphocyte Count 1.32 X10^3/uL (0.83-4.51); Absolute Neutrophil Count 3.8 X10^3/uL (2.0-7.7); Basophil# 0.04 X10^3/uL; Basophil% 0.7 % (0-1); Eosinophil# 0.18 X10^3/uL; Eosinophils% 3.1 % (0-5); Hematocrit 47.2 % (37-47); Lymphocyte # 1.32 X10^3/ul (4.0); Mean Corp Hgb Conc 31.8 g/dL (32-36); Mean Corpuscular Hgb 31.1 pg (27.0-32.0); Mean Corpuscular Volume 97.7 fL (81-99); Mean Platelet Vol. 10.9 fl (6.2-12.0); Monocyte# 0.36 X10^3/uL; Monocyte% 6.3 % (0-10); NRBC Flagged by Analyzer 0 % (0-5); Neutrophil # 3.81 X10^3/uL (2.7-7.7); Neutrophil % 66.6 % (47-70); Platelet Count 194 K/mm3 (150-450); RBC Distribution Width CV 13.2 % (11.6-14.6); RBC Distribution Width SD 47.4 fl (35.1-43.9); Red Blood Count 4.83 M/mm3 (4.2-5.4); White Blood Count 5.7 K/mm3 (4.4-11.0)
[2020-06-18 08:44] LABS: Vitamin B12 711 pg/mL (211-911)
[2020-06-18 09:01] LABS: ALB/GLOB Ratio 0.8 RATIO (0.9-2.4); AST(SGOT) 24 U/L (15-37); Alanine Aminotransfer ALT/SGPT 18 U/L (13-56); Albumin, Serum 3.2 g/dL (3.2-5.0); Alkaline Phosphatase 83 U/L (45-117); Anion Gap 3 (5-15); BUN 13 mg/dL (7-18); BUN/Creat Ratio 19.3 RATIO (10-20); Calcium,Total 8.7 mg/dL (8.5-10.1); Chloride 108 mmol/L (98-107); Creatinine, Serum 0.67 mg/dL (0.55-1.02); EST Glomerular Filtration Rate 93 mL/min (>60); Est Glom Filt Rate - Afr Amer 112 mL/min (>60); Globulin 3.8 g/dL (2.2-4.2); Glucose 93 mg/dL (74-106); Sodium Level 138 mmol/L (136-145); Thyroid Stim Hormone (TSH) 3.99 uIU/mL (0.358-3.74)
== END ==
LOC: OLS.ACH 05:00
PROVIDERS: Visit Provider Family Medicine
DX: R41.82 Altered mental status, unspecified (principal)
CPT/HCPCS: 36415; 80053; 82140; 82607; 82746; 84443; 85025

== ENCOUNTER → 2020-06-21 10:00 | Outpatient (REF) | payer MEDICARE, MEDICAID, SELFPAY | LOC: OLS.ACH 10:00 | PROVIDERS: Visit Provider Family Medicine | DX: Z11.59 Encounter for screening for other viral diseases (principal) | CPT/HCPCS: 87635; U0003 ==

== ENCOUNTER → 2020-06-25 13:52 | Outpatient (REF) | payer MEDICARE, SELFPAY | LOC: OLS.ACH 13:52 | PROVIDERS: Referring Provider Family Medicine; Visit Provider Family Medicine | DX: Z03.818 Encounter for observation for suspected exposure to other biological agents ruled out (principal) | CPT/HCPCS: 87635; U0003 ==

== ENCOUNTER → 2020-06-28 08:00 | Outpatient (REF) | payer MEDICARE, SELFPAY | LOC: OLS.ACH 08:00 | PROVIDERS: Referring Provider Family Medicine; Visit Provider Family Medicine | DX: Z03.818 Encounter for observation for suspected exposure to other biological agents ruled out (principal) | CPT/HCPCS: 87635; U0003 ==

== ENCOUNTER → 2020-07-02 11:40 | Outpatient (REF) | payer MEDICARE, SELFPAY | LOC: OLS.ACH 11:40 | PROVIDERS: Referring Provider Family Medicine; Visit Provider Family Medicine | DX: Z03.818 Encounter for observation for suspected exposure to other biological agents ruled out (principal) | CPT/HCPCS: 87635; U0003 ==

== ENCOUNTER → 2020-07-05 15:07 | Outpatient (REF) | payer MEDICARE, SELFPAY | LOC: OLS.ACH 15:07 | PROVIDERS: Referring Provider Family Medicine; Visit Provider Family Medicine | DX: Z03.818 Encounter for observation for suspected exposure to other biological agents ruled out (principal) | CPT/HCPCS: 87635; U0003 ==

== ENCOUNTER → 2020-07-08 09:26 | Outpatient (CLI) | payer MEDICARE, SELFPAY ==
--- NOTE | 2020-07-08 09:41 | MRI_ITS ---
STUDY: MRI BRAIN WITHOUT CONTRAST REASON FOR EXAM: Female, 69 years old. dementia, hx Parkinsons, increased confusion, extremity stiffness TECHNIQUE: Standardized multiplanar fat and water weighted pulse sequences were obtained. COMPARISON: 10/23/2012 FINDINGS: There is moderate cerebral atrophy with widening of the extra-axial spaces and ventricular dilatation. There are multiple white matter hyperintensities, distributed throughout the deep white matter tracts of the cerebral hemispheres, consistent with moderate chronic white matter ischemic changes. There is no evidence for recent intracranial ischemia or other cause of cytotoxic edema on diffusion weighted imaging (DWI). Normal T2* images of the brain without demonstrated susceptibility artifact. There is no demonstrated hemosiderin stain. Midbrain iron stores are completed consistent with known Parkinson''s disease. Normal bilateral basal ganglia. Normal thalami. There is no extra-axial fluid accumulation. Normal flow voids within the major intracranial circulation suggesting patency by spin echo criteria. Normal sella turcica, pituitary gland, infundibular stalk, optic chiasm and hypothalamus. Normal tectal plate and pineal gland. Normal midbrain, jeff and medulla. Normal cerebellum. Normal basal cisterns. Normal bilateral temporal bones. Normal bilateral internal auditory canals. No demonstrated orbital abnormality, within the constraints of a routine brain study. Air-fluid level in left sphenoid sinus consistent with acute sinusitis. Normal calvarium and skull base. Normal visualized soft tissue structures. Normal visualized upper cervical spine. MRI/Brain without Contrast IMPRESSION: Involutional changes of the brain, as described above. Electronically Signed: Nikhil Greenfield MD at 14:04 EDT Tel , Service support ,
== END ==
PROVIDERS: PCP Family Medicine
DX: G81.94 Hemiplegia, unspecified affecting left nondominant side (principal); G31.83 Neurocognitive disorder with Lewy bodies; F02.81 Dementia in other diseases classified elsewhere, unspecified severity, with behavioral disturbance
CPT/HCPCS: 70551

== ENCOUNTER → 2020-07-09 10:33 | Outpatient (REF) | payer MEDICARE, SELFPAY | LOC: OLS.ACH 10:33 | PROVIDERS: PCP Family Medicine; Referring Provider Family Medicine; Visit Provider Family Medicine | DX: Z03.818 Encounter for observation for suspected exposure to other biological agents ruled out (principal) | CPT/HCPCS: 87635; U0003 ==

== ENCOUNTER → 2020-07-12 15:59 | Outpatient (REF) | payer MEDICARE, SELFPAY ==
[2020-07-12 17:05] LABS: Hematocrit 44.7 % (37-47); Hemoglobin 14.1 g/dL (12.0-15.0); Mean Corp Hgb Conc 31.5 g/dL (32-36); Mean Corpuscular Hgb 30.9 pg (27.0-32.0); Mean Platelet Vol. 11.4 fl (6.2-12.0); Platelet Count 186 K/mm3 (150-450); RBC Distribution Width CV 13.2 % (11.6-14.6); RBC Distribution Width SD 47.2 fl (35.1-43.9); Red Blood Count 4.56 M/mm3 (4.2-5.4); White Blood Count 5.6 K/mm3 (4.4-11.0)
[2020-07-12 17:29] LABS: Color, Urine Yellow (Yellow); Glucose, Dipstick Normal (Normal); Ketone-Dipstick 5 mg/dl (Negative); Leukocyte Esterase-Dipstick 25 /ul (Negative); Nitrite-Dipstick Negative (Negative); Occult Blood-Urine 10 /ul (Negative); Protein-Dipstick 15 mg/dl (Negative); Specific Gravity, Urine 1.025 (1.002-1.030); Urine Bilirubin Dipstick Negative (Negative); Urine Clarity Cloudy (Clear); Urine Urobilinogen Normal (Normal)
[2020-07-12 18:08] LABS: ALB/GLOB Ratio 0.9 RATIO (0.9-2.4); AST(SGOT) 19 U/L (15-37); Alanine Aminotransfer ALT/SGPT 12 U/L (13-56); Albumin, Serum 3.2 g/dL (3.2-5.0); Alkaline Phosphatase 73 U/L (45-117); Anion Gap 6 (5-15); BUN 17 mg/dL (7-18); BUN/Creat Ratio 22.9 RATIO (10-20); Calcium,Total 8.9 mg/dL (8.5-10.1); Chloride 109 mmol/L (98-107); Creatinine, Serum 0.74 mg/dL (0.55-1.02); EST Glomerular Filtration Rate 83 mL/min (>60); Est Glom Filt Rate - Afr Amer 100 mL/min (>60); Globulin 3.6 g/dL (2.2-4.2); Glucose 74 mg/dL (74-106); Protein, Total 6.8 g/dL (6.4-8.2); Sodium Level 144 mmol/L (136-145)
== END ==
LOC: OLS.ACH 15:59
PROVIDERS: PCP Family Medicine; Referring Provider Family Medicine; Visit Provider Family Medicine
DX: Z87.440 Personal history of urinary (tract) infections (principal); Z79.899 Other long term (current) drug therapy
CPT/HCPCS: 36415; 80053; 81002; 85027; 87086; 87088

== ENCOUNTER → 2020-07-13 11:15 | Outpatient (REF) | payer MEDICARE, SELFPAY | LOC: OLS.ACH 11:15 | PROVIDERS: PCP Family Medicine; Referring Provider Family Medicine; Visit Provider Family Medicine | DX: Z03.818 Encounter for observation for suspected exposure to other biological agents ruled out (principal) | CPT/HCPCS: 87635; U0003 ==

== ENCOUNTER → 2020-07-16 12:07 | Outpatient (REF) | payer MEDICARE, SELFPAY | LOC: OLS.ACH 12:07 | PROVIDERS: PCP Family Medicine; Referring Provider Family Medicine; Visit Provider Family Medicine | DX: Z03.818 Encounter for observation for suspected exposure to other biological agents ruled out (principal) | CPT/HCPCS: 87635; U0003 ==

== ENCOUNTER → 2020-07-20 16:31 | Outpatient (REF) | payer MEDICARE, SELFPAY | LOC: OLS.ACH 16:31 | PROVIDERS: PCP Family Medicine; Referring Provider Family Medicine; Visit Provider Family Medicine | DX: Z03.818 Encounter for observation for suspected exposure to other biological agents ruled out (principal) | CPT/HCPCS: 87635; U0003 ==

== ENCOUNTER → 2020-07-27 07:42 | Outpatient (REF) | payer MEDICARE, SELFPAY | LOC: OLS.ACH 07:42 | PROVIDERS: PCP Family Medicine; Referring Provider Family Medicine; Visit Provider Family Medicine | DX: Z03.818 Encounter for observation for suspected exposure to other biological agents ruled out (principal) | CPT/HCPCS: 87635; U0003 ==

== ENCOUNTER → 2020-08-03 14:15 | Outpatient (REF) | payer MEDICARE, MEDICAID, SELFPAY | LOC: OLS.ACH 14:15 | PROVIDERS: PCP Family Medicine; Visit Provider Family Medicine | DX: Z03.818 Encounter for observation for suspected exposure to other biological agents ruled out (principal) | CPT/HCPCS: 87635; U0003 ==